=== PATIENT | female | born 1990 | race Caucasian/White ===

== ENCOUNTER → 2016-04-04 | Day surgery (SDC) | payer MEDICARE, MEDICAID ==
[~2016-04-04] VITALS: Ht 162.6 cm; Wt 84.8 kg
[~2016-04-04] MED LIST: ACET500C PO; ACETAMINOPH W/CODEINE #3 TAB UD PO PRN; BUPIVACAINE HCL 0.5% 10 ML VIAL XX ONE; BUPIVACAINE/EPIN 0.5% 30 ML VIAL As Ordered ONE; IBUP80TA PO; LIDOCAINE W/EPINEPHRINE 1% 20ML VIAL As Ordered ONE; LIDOCAINE W/EPINEPHRINE 1% 20ML VIAL XX ONE; LR 1,000 ML IV SCH; MEPERIDINE INJ 25 MG/ML VIAL (J2175) IV PRN; METOCLOPRAMIDE INJ 10MG/2ML VIAL (J2765) IV PRN; MIDAZOLAM INJ 2 MG/2 ML VIAL (J2250) As Ordered ONE; MORPHINE 10 MG/ML 1ML VIAL IV PRN; ONDANSETRON 4MG/2ML VIAL (J2405) As Ordered ONE; ONDANSETRON 4MG/2ML VIAL (J2405) IV PRN; PERCOCET 5MG/325MG TAB PO PRN; PRENATAL VITAMIN PO; PROPOFOL 200 MG/20 ML VIAL As Ordered ONE; SUCCINYLCHOLINE 100 MG/5 ML SYRINGE (J0330) As Ordered ONE; dexameTHASONE 4 MG/ML 1ML VIAL (J1100) As Ordered ONE; fentaNYL 100 MCG/2 ML INJECTION (J3010) As Ordered ONE; fentaNYL 100 MCG/2 ML INJECTION (J3010) IV PRN
[2016-04-04 14:15] VITALS: BP 135/79
--- NOTE | 2016-04-05 06:56 | RO ---
DATE OF PROCEDURE: 04/04/2016 PREPROCEDURE DIAGNOSIS: Chronic tonsillitis. POSTPROCEDURE DIAGNOSIS: Chronic tonsillitis. PROCEDURE: Tonsillectomy. SURGEON: Dr. Jose Espana. 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 Lau-Km mouth gag was inserted, the tonsil area was infiltrated with lidocaine and epinephrine and Marcaine. Using a Coblator with setting of 6 and 4, the tonsil was dissected free from its bed on both sides. The base and apex and other areas were cauterized with a setting of 4 on the Coblator. No blood loss. A nasogastric was passed to suction air from the esophagus. The patient was extubated and transferred to the recovery room in excellent condition.
== END | disposition home or self-care (01) ==
LOC: M SDC 09:06
PROVIDERS: ATTEND Otolaryngology
DX: J35.01 Chronic tonsillitis (principal)
CPT/HCPCS: 42826; 88302; J0330; J1100; J2250; J2405; J3010

== ENCOUNTER 2016-04-16 21:58 | Emergency (ER) | payer MEDICARE, MEDICAID ==
[~2016-04-16 21:58] MED LIST changes: -ACETAMINOPH W/CODEINE #3 TAB UD PO PRN; -BUPIVACAINE HCL 0.5% 10 ML VIAL XX ONE; -BUPIVACAINE/EPIN 0.5% 30 ML VIAL As Ordered ONE; -LIDOCAINE W/EPINEPHRINE 1% 20ML VIAL As Ordered ONE; -LIDOCAINE W/EPINEPHRINE 1% 20ML VIAL XX ONE; -LR 1,000 ML IV SCH; -MEPERIDINE INJ 25 MG/ML VIAL (J2175) IV PRN; -METOCLOPRAMIDE INJ 10MG/2ML VIAL (J2765) IV PRN; -MIDAZOLAM INJ 2 MG/2 ML VIAL (J2250) As Ordered ONE; -MORPHINE 10 MG/ML 1ML VIAL IV PRN; -ONDANSETRON 4MG/2ML VIAL (J2405) As Ordered ONE; -ONDANSETRON 4MG/2ML VIAL (J2405) IV PRN; -PERCOCET 5MG/325MG TAB PO PRN; -PROPOFOL 200 MG/20 ML VIAL As Ordered ONE; -SUCCINYLCHOLINE 100 MG/5 ML SYRINGE (J0330) As Ordered ONE; -dexameTHASONE 4 MG/ML 1ML VIAL (J1100) As Ordered ONE; -fentaNYL 100 MCG/2 ML INJECTION (J3010) As Ordered ONE; -fentaNYL 100 MCG/2 ML INJECTION (J3010) IV PRN
[2016-04-16] MEDS ORDERED: IBUPROFEN 100 MG/5 ML SUSP UDC As Ordered ONE (23:17)
--- NOTE | 2016-04-16 23:25 | EDDOCDS ---
Nurse's Notes [facility] Name: Dilma Enciso Age: 25 yrs Sex: Female : 1990 Arrival Date: 04/16/2016 Time: 21:58 Bed 15 Private MD: Joyce Liao C Diagnosis: Otalgia and effusion of ear Presentation: 04/16 22:03 Presenting complaint: Patient states: she has had a earache for 3-4 days pt had cz tonsillectomy 04/04/16. Adult Sepsis Screening: The patient does not have new or worsening altered mentation. Patient's respiratory rate is less than 22. Systolic blood pressure is greater than 100. Patient has a qSOFA score of 0- Negative Sepsis Screen. Suicide/Homicide risk assessment- the patient denies having any suicidal and/or homicidal ideations and does not present with any other emotional, behavioral or mental health complaints. Status: Patient is not a technical services representative or dependent. Transition of care: patient was not received from another setting of care. 22:03 Acuity: IRVING Level 5 cz 22:03 Method Of Arrival: Walkin/Carried/Asstd cz Triage Assessment: 22:06 General: Appears in no apparent distress. Pain: Location: right ear and left ear Pain cz currently is 9 out of 10 on a pain scale. HIV screening NA for this visit Offered previously. 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 zyrtec nasal spray daily 2. Hydrocodone-Acetaminophen Oral - PMHx: Anxiety; - PSHx: Tonsillectomy; Adenoidectomy; - Social history: Smoking status: Patient states was never smoker of tobacco. No barriers to communication noted, The patient speaks fluent Turkmen, Speaks appropriately for age. - Family history: Not pertinent. - : The pt / caregiver states he / she is not on anticoagulants. Home medication list is obtained from the patient. - Exposure Risk Screening:: None identified. Screenin:08 Screening information is obtained from the patient. Fall risk: No risks identified. tm5 Assistance ADL's: requires no assistance with activities of daily living. Abuse/DV Screen: The patient / caregiver reports he/she is: not in a situation that causes fear, pain or injury. Nutritional screening: No deficits noted. Advance Directives: There is no active DNR order. home support is adequate. Assessment: 23:08 General: Appears in no apparent distress, Behavior is appropriate for age, cooperative. tm5 Pain: Location: right ear and left ear Pain currently is 9 out of 10 on a pain scale. Quality of pain is described as sharp, throbbing. Neurological: Level of Consciousness is awake, alert, Oriented to person, place, time. EENT: Ear canal clear on right ear and left ear. Vital Signs: 22:00 BP 116 / 69; Pulse 82; Resp 18 S; Temp 94.9(T); Pulse Ox 98% on R/A; Weight 84.37 kg gr2 (R); Height 5 ft. 4 in. (162.56 cm) (R); Pain 6/10; 23:23 BP 118 / 79; Pulse 74; Resp 18; Temp 97.2(O); Pulse Ox 98% on R/A; Pain 7/10; tm5 22:00 Body Mass Index 31.93 (84.37 kg, 162.56 cm) gr2 Vitals: 22:00 Log In Time: April 16, 2016 at 22:00. gr2 ED Course: 21:59 Patient visited by Dwaine Morel. gr2 21:59 Patient moved to Waiting gr2 22:00 Joyce Liao is Private Physician. gr2 22:02 Patient visited by Dwaine Morel. gr2 22:02 Patient moved to Pre RCE gr2 22:04 Triage Initiated cz 22:56 Patient moved to 15 sls1 23:07 Patient visited by Bren Raphael RN. tm5 23:08 Mark[facility] Wu FNP [facility]. ke 23:08 Patient visited by Marky Wu FNP. ke 23:08 Patient visited by Marky Wu FNP. ke 23:08 Awaiting ED physician evaluation. tm5 23:08 The patient / caregiver is instructed regarding the plan of care and ED course. tm5 23:08 No procedures done that require assistance. tm5 23:16 Joyce Liao is Referral Physician. ke 23:23 Patient visited by Bren Raphael RN. tm5 23:23 No IV's were initiated during this patient's visit. tm5 Administered Medications: 23:23 Drug: Ibuprofen (10mg/kg) 600 mg [ibuprofen 100 mg/5 mL oral suspension (30 mL)] Route: tm5 PO; 23:23 Follow up: Response: Pt left department before re-evaluation is appropriate tm5 Order Results: There are currently no results for this order. Outcome: 23:16 Discharge ordered by Provider. ke 23:23 Discharge Assessment: Patient awake, alert and oriented x 3. No cognitive and/or tm5 functional deficits noted. Patient verbalized understanding of disposition instructions. patient administered narcotics - no. The following High Risk Discharge criteria are identified: None. Discharged to home ambulatory, with significant other. Condition: good Condition: stable. Discharge instructions given to patient, Instructed on discharge instructions, follow up and referral plans. medication usage, Demonstrated understanding of instructions, medications, Pt was receptive of discharge instructions/ teaching. Prescriptions given X 1. No special radiology studies were completed. Property :Personal belongings accompany Pt. 23:24 Patient left the ED. tm5 Signatures: Dago Orta, RN RN Marky Hampton FNP FNP ke Strong, Shannon RN RN [facility] Dwaine Morel gr2 Bren Raphael RN RN tm5 IVETT
--- NOTE | 2016-04-16 23:25 | EDDOCDS ---
Physician Documentation [facility] Name: Dilma Enciso Age: 25 yrs Sex: Female : 1990 Arrival Date: 04/16/2016 Time: 21:58 Bed 15 Private MD: Joyce Liao C Disposition: 04/16/16 23:16 Discharged to Home/Self Care. Impression: Otalgia and effusion of ear. - Condition is Stable. - Discharge Instructions: Earache. - Prescriptions for MOTRIN SYRUP - take 30 milliliter by ORAL route every 6 hours; 320 milliliter. - Medication Reconciliation, Local Pharmacy Hours form. - Follow up: Joyce Liao; When: As needed; Reason: Continuance of care. - Problem is an ongoing problem. - Symptoms are unchanged. Historical: - Allergies: No known drug Allergies; - Home Meds: 1. zyrtec nasal spray daily 2. Hydrocodone-Acetaminophen Oral - PMHx: Anxiety; - PSHx: Tonsillectomy; Adenoidectomy; - Social history: Smoking status: Patient states was never smoker of tobacco. No barriers to communication noted, The patient speaks fluent Belarusian, Speaks appropriately for age. - Family history: Not pertinent. - : The pt / caregiver states he / she is not on anticoagulants. Home medication list is obtained from the patient. - Exposure Risk Screening:: None identified. 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 4 in. (162.56 cm) (R); Pain 6/10; 23:23 BP 118 / 79; Pulse 74; Resp 18; Temp 97.2(O); Pulse Ox 98% on R/A; Pain 7/10; tm5 22:00 Body Mass Index 31.93 (84.37 kg, 162.56 cm) gr2 MDM: 23:14 Ibuprofen (10mg/kg) Suspension 600 mg PO once; not to exceed 800 milligrams ordered. ke 23:19 Financial registration complete. pm4 Administered Medications: 23:23 Drug: Ibuprofen (10mg/kg) 600 mg [ibuprofen 100 mg/5 mL oral suspension (30 mL)] Route: tm5 PO; 23:23 Follow up: Response: Pt left department before re-evaluation is appropriate tm5 Signatures: Dago Orta, RN RN cz Marky Wu, SURGICAL CLINICAL REVIEWER SURGICAL CLINICAL REVIEWER Bren Bustamante RN RN tm5 Zak Rodríguez, Reg Reg pm4 MTDD
--- NOTE | 2016-04-19 00:25 | EDDOCDS ---
Physician Documentation [facility] Name: Dilma Enciso Age: 25 yrs Sex: Female : 1990 Arrival Date: 04/16/2016 Time: 21:58 Bed 15 Private MD: Joyce Liao C Disposition: 04/16/16 23:16 Discharged to Home/Self Care. Impression: Otalgia and effusion of ear. - Condition is Stable. - Discharge Instructions: Earache. - Prescriptions for MOTRIN SYRUP - take 30 milliliter by ORAL route every 6 hours; 320 milliliter. - Medication Reconciliation, Local Pharmacy Hours form. - Follow up: Joyce Liao; When: As needed; Reason: Continuance of care. - Problem is an ongoing problem. - Symptoms are unchanged. Historical: - Allergies: No known drug Allergies; - Home Meds: 1. zyrtec nasal spray daily 2. Hydrocodone-Acetaminophen Oral - PMHx: Anxiety; - PSHx: Tonsillectomy; Adenoidectomy; - Social history: Smoking status: Patient states was never smoker of tobacco. No barriers to communication noted, The patient speaks fluent Montserratian, Speaks appropriately for age. - Family history: Not pertinent. - : The pt / caregiver states he / she is not on anticoagulants. Home medication list is obtained from the patient. - Exposure Risk Screening:: None identified. 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 4 in. (162.56 cm) (R); Pain 6/10; 23:23 BP 118 / 79; Pulse 74; Resp 18; Temp 97.2(O); Pulse Ox 98% on R/A; Pain 7/10; tm5 22:00 Body Mass Index 31.93 (84.37 kg, 162.56 cm) gr2 MDM: 23:14 Ibuprofen (10mg/kg) Suspension 600 mg PO once; not to exceed 800 milligrams ordered. ke 23:19 Financial registration complete. pm4 23:32 [facility] Payment Agreement was scanned into [employer] and attached to record. pm4 04/17 11:36 T-Sheet-- Draft Copy was scanned into [employer]ga and attached to record. gb Administered Medications: 04/16 23:23 Drug: Ibuprofen (10mg/kg) 600 mg [ibuprofen 100 mg/5 mL oral suspension (30 mL)] Route: tm5 PO; 23:23 Follow up: Response: Pt left department before re-evaluation is appropriate tm5 Signatures: Dago Orta, CECY RN cz Carmelita Godwin, Reg Reg gb Marky Wu, TOOL MARKER TOOL MARKER Bren Bustamante RN RN tm5 Zak Rodríguez, Reg Reg pm4 The chart was reviewed and I authenticate all verbal orders and agree with the evaluation and treatment provided.Attachments: 23:32 [facility] Payment Agreement pm4 04/17 11:36 T-Sheet-- Draft Copy gb Chart Complete MTDD
--- NOTE | 2016-04-19 00:25 | EDDOCDS ---
Nurse's Notes [facility] Name: Dilma Enciso Age: 25 yrs Sex: Female : 1990 Arrival Date: 04/16/2016 Time: 21:58 Bed 15 Private MD: Joyce Liao C Diagnosis: Otalgia and effusion of ear Presentation: 04/16 22:03 Presenting complaint: Patient states: she has had a earache for 3-4 days pt had cz tonsillectomy 04/04/16. Adult Sepsis Screening: The patient does not have new or worsening altered mentation. Patient's respiratory rate is less than 22. Systolic blood pressure is greater than 100. Patient has a qSOFA score of 0- Negative Sepsis Screen. Suicide/Homicide risk assessment- the patient denies having any suicidal and/or homicidal ideations and does not present with any other emotional, behavioral or mental health complaints. 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 Transition of care: patient was not received from another setting of care. 22:03 Acuity: IRVING Level 5 cz 22:03 Method Of Arrival: Walkin/Carried/Asstd cz Triage Assessment: 22:06 General: Appears in no apparent distress. Pain: Location: right ear and left ear Pain cz currently is 9 out of 10 on a pain scale. HIV screening NA for this visit Offered previously. 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 zyrtec nasal spray daily 2. Hydrocodone-Acetaminophen Oral - PMHx: Anxiety; - PSHx: Tonsillectomy; Adenoidectomy; - Social history: Smoking status: Patient states was never smoker of tobacco. No barriers to communication noted, The patient speaks fluent Syriac, Speaks appropriately for age. - Family history: Not pertinent. - : The pt / caregiver states he / she is not on anticoagulants. Home medication list is obtained from the patient. - Exposure Risk Screening:: None identified. Screenin:08 Screening information is obtained from the patient. Fall risk: No risks identified. tm5 Assistance ADL's: requires no assistance with activities of daily living. Abuse/DV Screen: The patient / caregiver reports he/she is: not in a situation that causes fear, pain or injury. Nutritional screening: No deficits noted. Advance Directives: There is no active DNR order. home support is adequate. Assessment: 23:08 General: Appears in no apparent distress, Behavior is appropriate for age, cooperative. tm5 Pain: Location: right ear and left ear Pain currently is 9 out of 10 on a pain scale. Quality of pain is described as sharp, throbbing. Neurological: Level of Consciousness is awake, alert, Oriented to person, place, time. EENT: Ear canal clear on right ear and left ear. Vital Signs: 22:00 BP 116 / 69; Pulse 82; Resp 18 S; Temp 94.9(T); Pulse Ox 98% on R/A; Weight 84.37 kg gr2 (R); Height 5 ft. 4 in. (162.56 cm) (R); Pain 6/10; 23:23 BP 118 / 79; Pulse 74; Resp 18; Temp 97.2(O); Pulse Ox 98% on R/A; Pain 7/10; tm5 22:00 Body Mass Index 31.93 (84.37 kg, 162.56 cm) gr2 Vitals: 22:00 Log In Time: April 16, 2016 at 22:00. gr2 ED Course: 21:59 Patient visited by Dwaine Morel. gr2 21:59 Patient moved to Waiting gr2 22:00 Joyce Liao is Private Physician. gr2 22:02 Patient visited by Dwaine Morel. gr2 22:02 Patient moved to Pre RCE gr2 22:04 Triage Initiated cz 22:56 Patient moved to 15 sls1 23:07 Patient visited by Bren Raphael RN. tm5 23:08 Mark[facility] FNP [facility]. ke 23:08 Patient visited by Marky Wu FNP. ke 23:08 Patient visited by Marky Wu FNP. ke 23:08 Awaiting ED physician evaluation. tm5 23:08 The patient / caregiver is instructed regarding the plan of care and ED course. tm5 23:08 No procedures done that require assistance. tm5 23:16 Joyce Liao is Referral Physician. ke 23:23 Patient visited by Bren Raphael RN. tm5 23:23 No IV's were initiated during this patient's visit. tm5 23:32 [facility] Payment Agreement was scanned into [employer] and attached to record. pm4 04/17 11:36 T-Sheet-- Draft Copy was scanned into [employer] and attached to record. gb Administered Medications: 04/16 23:23 Drug: Ibuprofen (10mg/kg) 600 mg [ibuprofen 100 mg/5 mL oral suspension (30 mL)] Route: tm5 PO; 23:23 Follow up: Response: Pt left department before re-evaluation is appropriate tm5 Order Results: There are currently no results for this order. Outcome: 23:16 Discharge ordered by Provider. ke 23:23 Discharge Assessment: Patient awake, alert and oriented x 3. No cognitive and/or tm5 functional deficits noted. Patient verbalized understanding of disposition instructions. patient administered narcotics - no. The following High Risk Discharge criteria are identified: None. Discharged to home ambulatory, with significant other. Condition: good Condition: stable. Discharge instructions given to patient, Instructed on discharge instructions, follow up and referral plans. medication usage, Demonstrated understanding of instructions, medications, Pt was receptive of discharge instructions/ teaching. Prescriptions given X 1. No special radiology studies were completed. Property :Personal belongings accompany Pt. 23:24 Patient left the ED. tm5 Signatures: Dago Orta, RN RN cz Carmelita Godwin, Reg Reg gb Marky Wu, Ese Mccray, RN RN sls1 Dwaine Morel gr2 Bren Raphael RN RN tm5 Zak Rodríguez, Reg Reg pm4 Chart Complete MTDD
--- NOTE | 2016-04-19 00:25 | EDDOCDS ---
Physician Documentation [facility] Name: Dilma Enciso Age: 25 yrs Sex: Female : 1990 Arrival Date: 04/16/2016 Time: 21:58 Bed 15 Private MD: Joyce Liao C Disposition: 04/16/16 23:16 Discharged to Home/Self Care. Impression: Otalgia and effusion of ear. - Condition is Stable. - Discharge Instructions: Earache. - Prescriptions for MOTRIN SYRUP - take 30 milliliter by ORAL route every 6 hours; 320 milliliter. - Medication Reconciliation, Local Pharmacy Hours form. - Follow up: Joyce Liao; When: As needed; Reason: Continuance of care. - Problem is an ongoing problem. - Symptoms are unchanged. Historical: - Allergies: No known drug Allergies; - Home Meds: 1. zyrtec nasal spray daily 2. Hydrocodone-Acetaminophen Oral - PMHx: Anxiety; - PSHx: Tonsillectomy; Adenoidectomy; - Social history: Smoking status: Patient states was never smoker of tobacco. No barriers to communication noted, The patient speaks fluent Paraguayan, Speaks appropriately for age. - Family history: Not pertinent. - : The pt / caregiver states he / she is not on anticoagulants. Home medication list is obtained from the patient. - Exposure Risk Screening:: None identified. 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 4 in. (162.56 cm) (R); Pain 6/10; 23:23 BP 118 / 79; Pulse 74; Resp 18; Temp 97.2(O); Pulse Ox 98% on R/A; Pain 7/10; tm5 22:00 Body Mass Index 31.93 (84.37 kg, 162.56 cm) gr2 MDM: 23:14 Ibuprofen (10mg/kg) Suspension 600 mg PO once; not to exceed 800 milligrams ordered. ke 23:19 Financial registration complete. pm4 23:32 [facility] Payment Agreement was scanned into [employer] and attached to record. pm4 04/17 11:36 T-Sheet-- Draft Copy was scanned into [employer] and attached to record. gb Administered Medications: 04/16 23:23 Drug: Ibuprofen (10mg/kg) 600 mg [ibuprofen 100 mg/5 mL oral suspension (30 mL)] Route: tm5 PO; 23:23 Follow up: Response: Pt left department before re-evaluation is appropriate tm5 Signatures: Dago Orta, CECY RN cz Carmelita Godwin, Reg Reg gb Marky Wu, YOUTH WORKER YOUTH WORKER Bren Bustamante RN RN tm5 Zak Rodríguez, Reg Reg pm4 The chart was reviewed and I authenticate all verbal orders and agree with the evaluation and treatment provided.Attachments: 23:32 [facility] Payment Agreement pm4 04/17 11:36 T-Sheet-- Draft Copy gb Chart Complete MTDD
== END 2016-04-16 23:24 | disposition home or self-care (01) ==
LOC: M ED 21:58
DX: H92.03 Otalgia, bilateral (principal); F41.9 Anxiety disorder, unspecified

== ENCOUNTER 2016-04-28 22:20 | Emergency (ER) | payer MEDICARE, MEDICAID ==
[2016-04-28] MEDS ORDERED: IBUPROFEN 600 MG TAB As Ordered ONE (23:38)
--- NOTE | 2016-04-28 23:43 | EDDOCDS ---
Physician Documentation [facility] Name: Dilma Enciso Age: 25 yrs Sex: Female : 1990 Arrival Date: 04/28/2016 Time: 22:20 Bed Triage 2 Private MD: Meredith Harrington FNP Disposition: 04/28/16 23:31 Discharged to Home/Self Care. Impression: Pain in left wrist - CHRONIC. - Condition is Stable. - Discharge Instructions: Wrist Pain. - Prescriptions for Ibuprofen 600 mg Oral Tablet - take 1 tablet by ORAL route every 6 hours As needed take with food; 30 tablet. - Medication Reconciliation, Local Pharmacy Hours form. - Follow up: [facility]; When: 2 - 3 days; Reason: Recheck today's complaints, Continuance of care. - Problem is new. - Symptoms have improved. - Notes: PLEASE USE SPLINT AND MOTRIN, FOLLOW UP WITH [facility] FOR FURTHER EVALUATION OF YOUR CHRONIC LEFT WRIST PAIN Historical: - Allergies: no known allergies; - Home Meds: 1. none - PMHx: Anxiety; - PSHx: Tonsillectomy; Adenoidectomy; - Social history: Smoking status: Patient states was never smoker of tobacco. No barriers to communication noted, The patient speaks fluent Welsh. - Family history: Not pertinent. - : The pt / caregiver states he / she is not on anticoagulants. Home medication list is obtained from the patient. - Exposure Risk Screening:: None identified. 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 4 in. (162.56 cm) (R); Pain 9/10; 22:22 Body Mass Index 31.93 (84.37 kg, 162.56 cm) dhruv MDM: 23:30 Splint Affected Extremity ordered. ck7 23:30 Ibuprofen 600 mg PO once ordered. ck7 Administered Medications: 23:41 Drug: Ibuprofen 600 mg [ibuprofen 600 mg tablet (1 tabs)] Route: PO; b Signatures: Perla Hernandez RN RN rs3 Roland Alston, RPA-C [id number] Rashawn Charles,RN RN jmb MTDD
--- NOTE | 2016-04-28 23:43 | EDDOCDS ---
Nurse's Notes [facility] Name: Dilma Enciso Age: 25 yrs Sex: Female : 1990 Arrival Date: 04/28/2016 Time: 22:20 Bed Triage 2 Private MD: Meredith Harrington FNP Diagnosis: Pain in left wrist-CHRONIC Presentation: 04/28 22:23 Presenting complaint: Patient states: Left wrist pain on and off for a week. No recent rs3 injury. Adult Sepsis Screening: The patient does not have new or worsening altered mentation. Patient's respiratory rate is less than 22. Systolic blood pressure is greater than 100. Patient has a qSOFA score of 0- Negative Sepsis Screen. Suicide/Homicide risk assessment- the patient denies having any suicidal and/or homicidal ideations and does not present with any other emotional, behavioral or mental health complaints. 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 Transition of care: patient was not received from another setting of care. 22:23 Acuity: IRVING Level 4 rs3 22:23 Method Of Arrival: Walkin/Carried/Asstd rs3 Triage Assessment: 22:25 General: Appears in no apparent distress. Pain: Location: left hand. HIV screening NA rs3 for this visit Offered previously. Musculoskeletal: Reports Pain is 5 out of 10 on a pain scale. 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 none - PMHx: Anxiety; - PSHx: Tonsillectomy; Adenoidectomy; - Social history: Smoking status: Patient states was never smoker of tobacco. No barriers to communication noted, The patient speaks fluent Belarusian. - Family history: Not pertinent. - : The pt / caregiver states he / she is not on anticoagulants. Home medication list is obtained from the patient. - Exposure Risk Screening:: None identified. Screenin:41 Screening information is obtained from the patient. Fall risk: No risks identified. jmb Assistance ADL's: requires no assistance with activities of daily living. Abuse/DV Screen: The patient / caregiver reports he/she is: not in a situation that causes fear, pain or injury. Nutritional screening: No deficits noted. Advance Directives: Currently, there is no health care proxy. There is no active DNR order. There is no living will. 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 home support is adequate. Assessment: 23:41 General: Patient instructed on discharge instructions. Patient asked if there were any jmb questions regarding discharge, patient stated no. Patient signed discharge instructions. Patient discharged in stable condition. . Musculoskeletal: Range of motion intact in all extremities. Vital Signs: 22:22 BP 113 / 68; Pulse 89; Resp 18; Temp 97.3(O); Pulse Ox 99% on R/A; Weight 84.37 kg (R); dhruv Height 5 ft. 4 in. (162.56 cm) (R); Pain 9/10; 22:22 Body Mass Index 31.93 (84.37 kg, 162.56 cm) dhruv Vitals: 22:22 Log In Time: April 28, 2016 at 22:22. dhruv ED Course: 22:22 Patient visited by Danita Bethea PCA. dhruv 22:22 Meredith Harrington is Private Physician. dhruv 22:22 Patient moved to Waiting dhruv 22:22 Patient moved to Pre RCE dhruv 22:24 Triage Initiated rs3 23:03 Patient moved to Triage 2 ms18 23:11 [facility]ston [facility] ck7 23:11 Shayne Ni DO is Attending Physician. ck7 23:11 Patient visited by Roland Alston RPA-C. ck7 23:30 [facility] is Referral Physician. ck7 23:41 The patient / caregiver is instructed regarding the plan of care and ED course. jmb 23:41 No IV's were initiated during this patient's visit. No procedures done that require jmb assistance. Administered Medications: 23:41 Drug: Ibuprofen 600 mg [ibuprofen 600 mg tablet (1 tabs)] Route: PO; jmb Order Results: There are currently no results for this order. Outcome: 23:31 Discharge ordered by Provider. ck7 23:41 Discharge Assessment: Patient awake, alert and oriented x 3. No cognitive and/or jmb functional deficits noted. Patient verbalized understanding of disposition instructions. Patient awake and alert. obeys commands, Oriented to person, place and time. Patient verbalized understanding of disposition instructions. Patient has no functional deficits. patient administered narcotics - no. The following High Risk Discharge criteria are identified: None. Discharged to home ambulatory, with significant other. Condition: stable Condition: improved. Discharge instructions given to patient, Instructed on discharge instructions, follow up and referral plans. Demonstrated understanding of instructions, Pt was receptive of discharge instructions/ teaching. No special radiology studies were completed. Property sent home with patient. 23:42 Patient left the ED. lisa Signatures: Perla Hernandez,RN RN rs3 Danita Bethea, SHANTA PRODUCTION OPERATOR Roland White, RPA-C RPA-Cck7 Rashawn Charles,RN RN Justa AponteRN RN ms18 MTDD
--- NOTE | 2016-05-01 00:43 | EDDOCDS ---
Physician Documentation [facility] Name: Dilma Enciso Age: 25 yrs Sex: Female : 1990 Arrival Date: 04/28/2016 Time: 22:20 Bed Triage 2 Private MD: Meredith Harrington FNP Disposition: 04/28/16 23:31 Discharged to Home/Self Care. Impression: Pain in left wrist - CHRONIC. - Condition is Stable. - Discharge Instructions: Wrist Pain. - Prescriptions for Ibuprofen 600 mg Oral Tablet - take 1 tablet by ORAL route every 6 hours As needed take with food; 30 tablet. - Medication Reconciliation, Local Pharmacy Hours form. - Follow up: [facility]; When: 2 - 3 days; Reason: Recheck today's complaints, Continuance of care. - Problem is new. - Symptoms have improved. - Notes: PLEASE USE SPLINT AND MOTRIN, FOLLOW UP WITH [facility] FOR FURTHER EVALUATION OF YOUR CHRONIC LEFT WRIST PAIN Historical: - Allergies: no known allergies; - Home Meds: 1. none - PMHx: Anxiety; - PSHx: Tonsillectomy; Adenoidectomy; - Social history: Smoking status: Patient states was never smoker of tobacco. No barriers to communication noted, The patient speaks fluent Arabic. - Family history: Not pertinent. - : The pt / caregiver states he / she is not on anticoagulants. Home medication list is obtained from the patient. - Exposure Risk Screening:: None identified. 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 4 in. (162.56 cm) (R); Pain 9/10; 22:22 Body Mass Index 31.93 (84.37 kg, 162.56 cm) dhruv Procedures: 04/29 00:55 Fracture care/splinting: Splint applied to left wrist using wrist splint, applied by ck7 nurse. Examined by me, post splint application: neurovascular intact, 2+ distal pulses palpable, brisk capillary refill noted, Patient tolerated well. MDM: 04/28 23:30 Splint Affected Extremity ordered. ck7 23:30 Ibuprofen 600 mg PO once ordered. ck7 23:55 Financial registration complete. hs2 04/29 00:22 [facility] Payment Agreement was scanned into [employer] and attached to record. hs2 12:17 T-Sheet-- Draft Copy was scanned into [employer] and attached to record. gb Administered Medications: 04/28 23:41 Drug: Ibuprofen 600 mg [ibuprofen 600 mg tablet (1 tabs)] Route: PO; lisa Signatures: Carmelita Godwin, Reg Reg gb Perla Hernandez,RN RN rs3 Roland Alston, ARTHUR-C RPA-Cck7 Rashawn CharlesRN RN jmb Marielena Gold, Reg Reg hs2 The chart was reviewed and I authenticate all verbal orders and agree with the evaluation and treatment provided.Attachments: 04/29 00:22 [facility] Payment Agreement hs2 12:17 T-Sheet-- Draft Copy gb Chart Complete MTDD
--- NOTE | 2016-05-01 00:43 | EDDOCDS ---
Physician Documentation [facility] Name: Dilma Enciso Age: 25 yrs Sex: Female : 1990 Arrival Date: 04/28/2016 Time: 22:20 Bed Triage 2 Private MD: Meredith Harrington FNP Disposition: 04/28/16 23:31 Discharged to Home/Self Care. Impression: Pain in left wrist - CHRONIC. - Condition is Stable. - Discharge Instructions: Wrist Pain. - Prescriptions for Ibuprofen 600 mg Oral Tablet - take 1 tablet by ORAL route every 6 hours As needed take with food; 30 tablet. - Medication Reconciliation, Local Pharmacy Hours form. - Follow up: [facility]; When: 2 - 3 days; Reason: Recheck today's complaints, Continuance of care. - Problem is new. - Symptoms have improved. - Notes: PLEASE USE SPLINT AND MOTRIN, FOLLOW UP WITH [facility] FOR FURTHER EVALUATION OF YOUR CHRONIC LEFT WRIST PAIN Historical: - Allergies: no known allergies; - Home Meds: 1. none - PMHx: Anxiety; - PSHx: Tonsillectomy; Adenoidectomy; - Social history: Smoking status: Patient states was never smoker of tobacco. No barriers to communication noted, The patient speaks fluent Chinese. - Family history: Not pertinent. - : The pt / caregiver states he / she is not on anticoagulants. Home medication list is obtained from the patient. - Exposure Risk Screening:: None identified. 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 4 in. (162.56 cm) (R); Pain 9/10; 22:22 Body Mass Index 31.93 (84.37 kg, 162.56 cm) dhruv Procedures: 04/29 00:55 Fracture care/splinting: Splint applied to left wrist using wrist splint, applied by ck7 nurse. Examined by me, post splint application: neurovascular intact, 2+ distal pulses palpable, brisk capillary refill noted, Patient tolerated well. MDM: 04/28 23:30 Splint Affected Extremity ordered. ck7 23:30 Ibuprofen 600 mg PO once ordered. ck7 23:55 Financial registration complete. hs2 04/29 00:22 [facility] Payment Agreement was scanned into [employer] and attached to record. hs2 12:17 T-Sheet-- Draft Copy was scanned into [employer] and attached to record. gb Administered Medications: 04/28 23:41 Drug: Ibuprofen 600 mg [ibuprofen 600 mg tablet (1 tabs)] Route: PO; lisa Signatures: Carmelita Godwin, Reg Reg gb Perla Hernandez,RN RN rs3 Roladn Alston, ARTHUR-C RPA-Cck7 Rashawn CharlesRN RN jmb Marielena Gold, Reg Reg hs2 The chart was reviewed and I authenticate all verbal orders and agree with the evaluation and treatment provided.Attachments: 04/29 00:22 [facility] Payment Agreement hs2 12:17 T-Sheet-- Draft Copy gb Chart Complete MTDD
--- NOTE | 2016-05-01 00:43 | EDDOCDS ---
Nurse's Notes [facility] Name: Dilma Enciso Age: 25 yrs Sex: Female : 1990 Arrival Date: 04/28/2016 Time: 22:20 Bed Triage 2 Private MD: Meredith Harrington FNP Diagnosis: Pain in left wrist-CHRONIC Presentation: 04/28 22:23 Presenting complaint: Patient states: Left wrist pain on and off for a week. No recent rs3 injury. Adult Sepsis Screening: The patient does not have new or worsening altered mentation. Patient's respiratory rate is less than 22. Systolic blood pressure is greater than 100. Patient has a qSOFA score of 0- Negative Sepsis Screen. Suicide/Homicide risk assessment- the patient denies having any suicidal and/or homicidal ideations and does not present with any other emotional, behavioral or mental health complaints. 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 Transition of care: patient was not received from another setting of care. 22:23 Acuity: IRVING Level 4 rs3 22:23 Method Of Arrival: Walkin/Carried/Asstd rs3 Triage Assessment: 22:25 General: Appears in no apparent distress. Pain: Location: left hand. HIV screening NA rs3 for this visit Offered previously. Musculoskeletal: Reports Pain is 5 out of 10 on a pain scale. 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 none - PMHx: Anxiety; - PSHx: Tonsillectomy; Adenoidectomy; - Social history: Smoking status: Patient states was never smoker of tobacco. No barriers to communication noted, The patient speaks fluent Azerbaijani. - Family history: Not pertinent. - : The pt / caregiver states he / she is not on anticoagulants. Home medication list is obtained from the patient. - Exposure Risk Screening:: None identified. Screenin:41 Screening information is obtained from the patient. Fall risk: No risks identified. jmb Assistance ADL's: requires no assistance with activities of daily living. Abuse/DV Screen: The patient / caregiver reports he/she is: not in a situation that causes fear, pain or injury. Nutritional screening: No deficits noted. Advance Directives: Currently, there is no health care proxy. There is no active DNR order. There is no living will. There is no Power of Pharmacy Resource Tech. home support is adequate. Assessment: 23:41 General: Patient instructed on discharge instructions. Patient asked if there were any jmb questions regarding discharge, patient stated no. Patient signed discharge instructions. Patient discharged in stable condition. . Musculoskeletal: Range of motion intact in all extremities. Vital Signs: 22:22 BP 113 / 68; Pulse 89; Resp 18; Temp 97.3(O); Pulse Ox 99% on R/A; Weight 84.37 kg (R); dhruv Height 5 ft. 4 in. (162.56 cm) (R); Pain 9/10; 22:22 Body Mass Index 31.93 (84.37 kg, 162.56 cm) dhruv Vitals: 22:22 Log In Time: April 28, 2016 at 22:22. dhruv ED Course: 22:22 Patient visited by Danita Bethea PCA. dhruv 22:22 Meredith Harrington is Private Physician. dhruv 22:22 Patient moved to Waiting dhruv 22:22 Patient moved to Pre RCE dhruv 22:24 Triage Initiated rs3 23:03 Patient moved to Triage 2 ms18 23:11 Roland [facility]C [facility] ck[facility] 23:11 Shayne Ni DO is Attending Physician. ck7 23:11 Patient visited by Roland Alston RPA-C. ck7 23:30 [facility] is Referral Physician. ck7 23:41 The patient / caregiver is instructed regarding the plan of care and ED course. jmb 23:41 No IV's were initiated during this patient's visit. No procedures done that require jmb assistance. 04/29 00:22 [facility] Payment Agreement was scanned into [employer] and attached to record. hs2 12:17 T-Sheet-- Draft Copy was scanned into [employer] and attached to record. gb Administered Medications: 04/28 23:41 Drug: Ibuprofen 600 mg [ibuprofen 600 mg tablet (1 tabs)] Route: PO; jmb Order Results: There are currently no results for this order. Outcome: 23:31 Discharge ordered by Provider. ck7 23:41 Discharge Assessment: Patient awake, alert and oriented x 3. No cognitive and/or jmb functional deficits noted. Patient verbalized understanding of disposition instructions. Patient awake and alert. obeys commands, Oriented to person, place and time. Patient verbalized understanding of disposition instructions. Patient has no functional deficits. patient administered narcotics - no. The following High Risk Discharge criteria are identified: None. Discharged to home ambulatory, with significant other. Condition: stable Condition: improved. Discharge instructions given to patient, Instructed on discharge instructions, follow up and referral plans. Demonstrated understanding of instructions, Pt was receptive of discharge instructions/ teaching. No special radiology studies were completed. Property sent home with patient. 23:42 Patient left the ED. lsia Signatures: Carmelita Godwin, Reg Reg gb Perla Hernandez,RN RN rs3 Danita Bethea, COLLEGE ATHLETE COLLEGE ATHLETE dhruv Roland Alston, RPA-C RPA-Cck7 Rashawn Charles,RN RN Justa Aponte RN RN ms18 Marielena Gold, Reg Reg hs2 Chart Complete MTDYuval
== END 2016-04-28 23:42 | disposition home or self-care (01) ==
LOC: M ED 22:20
DX: M25.532 Pain in left wrist (principal); G89.29 Other chronic pain

== ENCOUNTER → 2016-07-02 | Emergency (ER) | payer MEDICARE, MEDICAID ==
[~2016-07-02] VITALS: Ht 162.6 cm; Wt 74.4 kg
[~2016-07-02] MED LIST changes: +ZOLO100T PO
[2016-07-02 20:17] LABS: INR 0.97
[2016-07-02 20:46] LABS: BASO # 0.1 K/mm3 (0.0-0.2); BASO % 0.9 % (0.0-1.0); EOS # 0.4 K/mm3 (0.0-0.50); EOS % 4.3 % (0.0-3.0); LARGE UNSTAINED CELL # 0.1 K/mm3 (0.0-0.4); LARGE UNSTAINED CELL % 1.6 % (0.0-4.0); LYMPH # 2.9 K/mm3 (1.5-6.5); LYMPH % 32.9 % (24.0-44.0); MEAN CORPUSCULAR HEMOGLOBIN 29.4 pg (27.0-33.0); MEAN CORPUSCULAR HGB CONC 33.7 g/dl (32.0-36.5); MEAN CORPUSCULAR VOLUME 87.2 fl (80.0-96.0); MONO # 0.4 K/mm3 (0.0-0.8); NEUTROPHILS # 4.6 K/mm3 (1.8-7.7); NEUTROPHILS % 55.3 % (36.0-66.0); PLATELET COUNT, AUTOMATED 251 k/mm3 (150-450); RED CELL DISTRIBUTION WIDTH 12.2 % (11.5-14.5); WHITE BLOOD COUNT 8.3 K/mm3 (4.0-10.0)
[2016-07-02 20:47] LABS: ANION GAP 7 MEQ/L (8-16); BLOOD UREA NITROGEN 7 MG/DL (7-18); CALCIUM LEVEL 8.8 MG/DL (8.5-10.1); CARBON DIOXIDE LEVEL 28 MEQ/L (21-32); CHLORIDE LEVEL 106 MEQ/L (98-107); CREATININE FOR GFR 0.74 MG/DL (0.55-1.02); GLOMERULAR FILTRATION RATE > 60.0 (>60); GLUCOSE, FASTING 95 MG/DL (70-105); HCG, SERUM QUANTITATIVE < 1.0 MIU/ML; POTASSIUM SERUM 3.2 MEQ/L (3.5-5.1); SODIUM LEVEL 141 MEQ/L (136-145)
[2016-07-02 21:14] VITALS: BP 121/70
== END | disposition home or self-care (01) ==
LOC: EDUNIT# 19:17 → EDBD 19:24 → EDSEX 19:24 → M ED 20:02
DX: N92.0 Excessive and frequent menstruation with regular cycle (principal); F32.9 Major depressive disorder, single episode, unspecified; F41.9 Anxiety disorder, unspecified; Z79.899 Other long term (current) drug therapy; F17.210 Nicotine dependence, cigarettes, uncomplicated; R51 Headache

== ENCOUNTER 2016-07-23 05:34 | Emergency (ER) | payer MEDICARE, MEDICAID ==
[~2016-07-23] VITALS: Ht 162.6 cm; Wt 79.4 kg
[2016-07-23] MEDS ORDERED: ZYRT10TA2 PO (05:55)
[2016-07-23] MEDS ORDERED: IBUPROFEN 800 MG TAB PO ONE (07:15)
--- NOTE | 2016-07-23 08:00 | REP ---
Cervical spine seven views: There are no comparisons. Vertebral body heights, interspacing alignment are normal. The facets are normally aligned. Prevertebral soft tissues are normal. There is no listhesis on flexion or extension. The odontoid view is unremarkable. There is no bony foraminal encroachment. Impression: Essentially negative plain film study of the cervical spine. Signed by Reji Miller MD 07/23/2016 07:51 A
[2016-07-23 08:26] VITALS: BP 127/76
--- NOTE | 2016-07-23 09:28 | ECGEPIP ---
Stationary ECG Study [facility] - ED Test Date: 2016-07-23 Pat Name: MICHELE NIELSEN Department: Room: - Gender: F Shanker Out: XiongB: 1990 Requested By: JULIA MORRELL PA-C. Order Number: [id number] Reading MD: Jeff Aragon Measurements Intervals [place] Rate: 59 P: 23 CT: 148 QRS: 52 QRSD: 81 T: 29 QT: 393 QTc: 391 Interpretive Statements SINUS BRADYCARDIA POSSIBLE LAE SIMILAR TO 12/06/14 Electronically Signed On 07-23-2016 9:28:19 EDT by Jeff Aragon
== END 2016-07-23 08:31 | disposition home or self-care (01) ==
LOC: EDBD 05:34 → M ED 06:33
DX: G89.29 Other chronic pain (principal); M54.2 Cervicalgia; T22.292A Burn of second degree of multiple sites of left shoulder and upper limb, except wrist and hand, initial encounter; X08.8XXA Exposure to other specified smoke, fire and flames, initial encounter; Y92.9 Unspecified place or not applicable; Y93.9 Activity, unspecified; M54.9 Dorsalgia, unspecified; F41.9 Anxiety disorder, unspecified; F12.10 Cannabis abuse, uncomplicated; F32.9 Major depressive disorder, single episode, unspecified; F17.200 Nicotine dependence, unspecified, uncomplicated; Z79.899 Other long term (current) drug therapy

== ENCOUNTER → 2016-08-27 | Outpatient (CLI) | payer MEDICARE, MEDICAID ==
[~2016-08-27] MED LIST changes: +ZYRT10TA2 PO
[2016-08-27 14:51] LABS: MEAN CORPUSCULAR HEMOGLOBIN 30.3 pg (27.0-33.0); MEAN CORPUSCULAR VOLUME 91.9 fl (80.0-96.0); RED CELL DISTRIBUTION WIDTH 12.1 % (11.5-14.5); WHITE BLOOD COUNT 6.6 K/mm3 (4.0-10.0)
[2016-08-27 15:13] LABS: ALBUMIN 3.7 GM/DL (3.2-5.2); ALBUMIN/GLOBULIN RATIO 1.09 (1.00-1.93); ALKALINE PHOSPHATASE 76 U/L (45-117); ALT/SGPT 19 U/L (12-78); AMYLASE 53 U/L (25-115); ANION GAP 6 MEQ/L (8-16); AST/SGOT 12 U/L (15-37); BILIRUBIN,DIRECT 0.3 MG/DL (0.0-0.2); BILIRUBIN,TOTAL 1.3 MG/DL (0.2-1.0); BLOOD UREA NITROGEN 10 MG/DL (7-18); CARBON DIOXIDE LEVEL 28 MEQ/L (21-32); CHLORIDE LEVEL 109 MEQ/L (98-107); CREATININE FOR GFR 0.75 MG/DL (0.55-1.02); GLOMERULAR FILTRATION RATE > 60.0 (>60); GLUCOSE, FASTING 88 MG/DL (70-105); MAGNESIUM LEVEL 1.8 MG/DL (1.8-2.4); POTASSIUM SERUM 4.1 MEQ/L (3.5-5.1); SODIUM LEVEL 143 MEQ/L (136-145); TOTAL PROTEIN 7.1 GM/DL (6.4-8.2)
== END ==
LOC: M LAB 13:35
PROVIDERS: ATTEND Nurse Practitioner Family
DX: R51 Headache (principal); K62.5 Hemorrhage of anus and rectum; R10.9 Unspecified abdominal pain

== ENCOUNTER → 2016-09-03 | Outpatient (CLI) | payer MEDICARE, MEDICAID ==
--- NOTE | 2016-09-03 08:49 | REP ---
Cervical spine series: Three views. History: Headache. Comparison radiographs are from July 23, 2016. Findings: AP, open-mouth odontoid, and lateral views of the cervical spine show reversal of the normal cervical lordosis. Vertebral body heights and disc spaces are maintained. Alignment is normal otherwise. Prevertebral soft tissues are not widened. Posterior elements appear intact. No bony destructive lesion is seen. Impression: Reversal of the normal cervical lordosis. Otherwise negative. Signed by Amadeo Ochoa MD 09/03/2016 02:49 P
--- NOTE | 2016-09-03 09:10 | REP ---
CT Head without contrast HISTORY: Occipital headache COMPARISON: 12/04/2014 An area of decreased attenuation is present in the left parietal lobe. There is dilatation of the overlying cortical sulci and posterior body and atrium of the left lateral ventricle. This represents encephalomalacia. There is no intraparenchymal hemorrhage, acute infarct, mass or midline shift. Of the third and lateral ventricles are dilated consistent with minimal volume loss. There is no extra cerebral collection. There is no fracture. Mucosal thickening is present in the left ethmoid sinus. IMPRESSION: 1. Left parietal lobe encephalomalacia. 2. Minimal volume loss. Signed by Leonard Isbell MD 09/03/2016 09:01 A
== END ==
LOC: M RAD 07:44
PROVIDERS: ATTEND Nurse Practitioner Family
DX: R51 Headache (principal)

== ENCOUNTER 2016-11-08 23:54 | Emergency (ER) | payer MEDICARE, MEDICAID ==
[~2016-11-08] VITALS: Ht 165.1 cm; Wt 147.0 kg
[2016-11-09 00:02] VITALS: BP 106/63
[2016-11-09] MEDS ORDERED: KLON0.5T PO (00:05)
[2016-11-09] MEDS ORDERED: LAMI1TAB7 PO (00:05)
[2016-12-24] MEDS ORDERED: TOPI25TA10 PO (12:10)
[2016-12-24] MEDS ORDERED: OMEP20CA3 PO (12:10)
[2016-12-24] MEDS ORDERED: CLON-412 PO (12:10)
[2016-12-24] MEDS ORDERED: FLUT1SPR2 (12:10)
[2016-12-24] MEDS ORDERED: LAMO100T PO (13:15)
[2016-12-24] MEDS ORDERED: MELA3TAB PO (13:15)
[2016-12-24] MEDS ORDERED: SERT-138 PO (13:15)
== END 2016-11-09 01:26 | disposition left against medical advice (07) ==
LOC: M ED 23:54
DX: R10.9 Unspecified abdominal pain (principal); Z53.21 Procedure and treatment not carried out due to patient leaving prior to being seen by health care provider

== ENCOUNTER → 2016-11-28 | Outpatient (CLI) | payer MEDICARE, MEDICAID ==
[~2016-11-28] MED LIST changes: +CLON-412 PO; +CONRAY-43 43% 50ML VIAL (Q9960) As Ordered ONE; +FLUT1SPR2; +KLON0.5T PO; +LAMI1TAB7 PO; +LAMO100T PO; +MACR100C43 PO; +MELA3TAB PO; +OMEP20CA3 PO; +SERT-138 PO; +TOPI25TA10 PO; +ZOFR4TAB3 PO
--- NOTE | 2016-11-28 09:20 | REP ---
MR ARTHROGRAPHY LEFT SHOULDER: With pre and post intra-articular gadolinium enhanced saline injected imaging: HISTORY: Pain. Decreased range of motion and numbness since injury 2 months ago. No comparison radiographs. TECHNIQUE: The injection procedure is performed and dictated separately. Pre and post intra-articular gadolinium enhanced saline injected imaging is acquired. Imaging planes include axial, oblique coronal, oblique sagittal and ABER projection images. T1 and T2-weighted scans are included with and without fat saturation. MRI FINDINGS: Pre-injection MR imaging shows cortical and medullary bone signal intensity to be normal at the shoulder. There is subcortical cyst formation in the superolateral humeral head. This finding has been associated with impingement. There is mild tendonitis tendinosis change in the distal supraspinatus tendon. Post-injection imaging shows good filling and enhancement of the left glenohumeral articulation. No loose body is seen. The anterior and posterior labral cartilages appear intact. The infraspinatus, subscapularis, and biceps tendons have an intact appearance. There is no evidence of supraspinatus or other rotator cuff tear on oblique coronal T1-weighted fat sat images post injection. ABER imaging shows no evidence of anterior labral tear. IMPRESSION: Mild supraspinatus tendinosis. Subcortical cyst formation in the superolateral humeral head. Otherwise unremarkable MR arthrography left shoulder . Signed by Amadeo Ochoa MD 11/28/2016 02:34 P
--- NOTE | 2016-11-28 14:41 | REP ---
Procedure: Left shoulder arthrogram The procedure was performed under the direct supervision of Dr. Ochoa. History: Left shoulder pain The benefits and risks including but not limited to pain, infection, bleeding and anaphylaxis were explained to the patient and informed consent was obtained. Technique: The left glenohumeral joint space was localized using fluoroscopic guidance. The skin was prepped and draped in a sterile fashion. 1% lidocaine was used as a local anesthetic. Using fluoroscopic guidance a 22 gauge spinal needle was inserted and advanced into the joint. 0.5 ml of Conray 43 was injected to verify placement. 11 ml of a solution containing 20 ml of sterile saline and 0.15 ml of ProHance was injected into the joint. The needle was removed and the patient was taken to MRI for postprocedural imaging. The the patient tolerated the procedure well and there were no immediate complications. less than 1 second of fluoro time was utilized for this procedure. Reviewed by PARTH Hebert 11/28/2016 08:27 ASigned by Amadeo Ochoa MD 11/28/2016 02:32 P
== END ==
LOC: M RADPRO 06:47
PROVIDERS: ATTEND Orthopaedic Surgery
DX: M65.812 Other synovitis and tenosynovitis, left shoulder (principal); M71.312 Other bursal cyst, left shoulder
CPT/HCPCS: 23350; 73223; 77002; A9576; Q9960

== ENCOUNTER → 2016-12-10 | Outpatient (CLI) | payer MEDICARE ==
[~2016-12-10] MED LIST changes: -CONRAY-43 43% 50ML VIAL (Q9960) As Ordered ONE
== END ==
LOC: M LAB 11:59
PROVIDERS: ATTEND Registered Nurse Psychiatric/Mental Health
DX: F43.22 Adjustment disorder with anxiety (principal)

== ENCOUNTER 2016-12-14 13:50 | Emergency (ER) | payer MEDICAID, MEDICARE ==
[~2016-12-14] VITALS: Ht 162.6 cm; Wt 66.8 kg
[~2016-12-14 13:50] MED LIST changes: -CLON-412 PO; -FLUT1SPR2; -LAMO100T PO; -MACR100C43 PO; -MELA3TAB PO; -OMEP20CA3 PO; -SERT-138 PO; -TOPI25TA10 PO; -ZOFR4TAB3 PO
[2016-12-14] MEDS ORDERED: ONDANSETRON 4MG/2ML VIAL (J2405) IV ONE (15:00)
[2016-12-14] MEDS ORDERED: NS 1,000 ML IV ONE (15:00)
[2016-12-14 15:21] LABS: BASO % 0.6 % (0.0-1.0); EOS # 0.2 K/mm3 (0.0-0.50); LARGE UNSTAINED CELL # 0.1 K/mm3 (0.0-0.4); LARGE UNSTAINED CELL % 1.7 % (0.0-4.0); LYMPH # 1.5 K/mm3 (1.5-6.5); LYMPH % 24.3 % (24.0-44.0); MEAN CORPUSCULAR HEMOGLOBIN 31.6 pg (27.0-33.0); MEAN CORPUSCULAR HGB CONC 35.4 g/dl (32.0-36.5); MEAN CORPUSCULAR VOLUME 89.4 fl (80.0-96.0); MONO # 0.4 K/mm3 (0.0-0.8); MONO % 6.9 % (0.0-5.0); NEUTROPHILS # 3.9 K/mm3 (1.8-7.7); NEUTROPHILS % 63.5 % (36.0-66.0); PLATELET COUNT, AUTOMATED 202 k/mm3 (150-450); RED CELL DISTRIBUTION WIDTH 12.6 % (11.5-14.5); WHITE BLOOD COUNT 6.2 K/mm3 (4.0-10.0)
[2016-12-14 15:30] LABS: CONTROL LINE HCG INT CTR LINE PRESENT
[2016-12-14 15:39] LABS: ALBUMIN 3.8 GM/DL (3.2-5.2); ALBUMIN/GLOBULIN RATIO 1.19 (1.00-1.93); ALKALINE PHOSPHATASE 85 U/L (45-117); ALT/SGPT 22 U/L (12-78); AMYLASE 45 U/L (25-115); ANION GAP 8 MEQ/L (8-16); AST/SGOT 21 U/L (15-37); BILIRUBIN,DIRECT 0.3 MG/DL (0.0-0.2); BILIRUBIN,TOTAL 1.5 MG/DL (0.2-1.0); BLOOD UREA NITROGEN 10 MG/DL (7-18); CALCIUM LEVEL 8.3 MG/DL (8.5-10.1); CARBON DIOXIDE LEVEL 27 MEQ/L (21-32); CHLORIDE LEVEL 108 MEQ/L (98-107); CREATININE FOR GFR 0.69 MG/DL (0.55-1.02); GLOMERULAR FILTRATION RATE > 60.0 (>60); GLUCOSE, FASTING 84 MG/DL (70-105); POTASSIUM SERUM 3.9 MEQ/L (3.5-5.1); SODIUM LEVEL 143 MEQ/L (136-145)
--- NOTE | 2016-12-14 16:01 | REP ---
Clinical: Abdominal pain. Technique: Upright view of the chest with supine and upright views of the abdomen and pelvis. Findings: Frontal upright view of the chest demonstrates no acute cardiopulmonary process or free air below the diaphragm to suspect pneumoperitoneum. Supine and upright views of the abdomen and pelvis demonstrate nonspecific bowel gas pattern without obstruction or perforation. No organomegaly. No abnormal calcifications. Skeletal structures normal for age. Prior cholecystectomy and tubal ligation. Impression: Nonspecific bowel gas pattern. Signed by Nixon Valladares MD 12/14/2016 03:53 P
[2016-12-14] MEDS ORDERED: ZOFR4TAB3 PO (16:43)
[2016-12-14] MEDS ORDERED: MACR100C43 PO (16:43)
[2016-12-14 16:45] VITALS: BP 108/73
[2016-12-24] MEDS ORDERED: OMEP20CA3 PO (12:10)
[2016-12-24] MEDS ORDERED: TOPI25TA10 PO (12:10)
[2016-12-24] MEDS ORDERED: CLON-412 PO (12:10)
[2016-12-24] MEDS ORDERED: FLUT1SPR2 (12:10)
[2016-12-24] MEDS ORDERED: MELA3TAB PO (13:15)
[2016-12-24] MEDS ORDERED: LAMO100T PO (13:15)
[2016-12-24] MEDS ORDERED: SERT-138 PO (13:15)
== END 2016-12-14 17:00 | disposition home or self-care (01) ==
LOC: M ED 13:50
DX: K52.9 Noninfective gastroenteritis and colitis, unspecified (principal); N39.0 Urinary tract infection, site not specified; F17.210 Nicotine dependence, cigarettes, uncomplicated; Z79.899 Other long term (current) drug therapy
CPT/HCPCS: 36415; 74022; 80048; 80076; 80175; 81001; 82150; 83690; 84703; 85025; 87086; 96374; 99283; J2405

== ENCOUNTER 2016-12-15 03:36 | Emergency (ER) | payer MEDICARE ==
[~2016-12-15] VITALS: Ht 165.1 cm; Wt 67.7 kg
[~2016-12-15 03:36] MED LIST changes: +MACR100C43 PO; +ZOFR4TAB3 PO
[2016-12-15 05:09] LABS: MEAN CORPUSCULAR HEMOGLOBIN 30.7 pg (27.0-33.0); MEAN CORPUSCULAR HGB CONC 34.1 g/dl (32.0-36.5); RED CELL DISTRIBUTION WIDTH 12.9 % (11.5-14.5)
[2016-12-15 05:20] LABS: CONTROL LINE HCG INT CTR LINE PRESENT
[2016-12-15 05:25] LABS: METHADONE URINE NEGATIVE (NEGATIVE)
[2016-12-15 05:37] LABS: ALBUMIN 3.5 GM/DL (3.2-5.2); ALBUMIN/GLOBULIN RATIO 1.13 (1.00-1.93); ALKALINE PHOSPHATASE 80 U/L (45-117); ALT/SGPT 20 U/L (12-78); ANION GAP 9 MEQ/L (8-16); AST/SGOT 15 U/L (15-37); BILIRUBIN,DIRECT 0.2 MG/DL (0.0-0.2); BLOOD UREA NITROGEN 17 MG/DL (7-18); CALCIUM LEVEL 8.8 MG/DL (8.5-10.1); CARBON DIOXIDE LEVEL 26 MEQ/L (21-32); CHLORIDE LEVEL 111 MEQ/L (98-107); CREATININE FOR GFR 0.77 MG/DL (0.55-1.02); GLOMERULAR FILTRATION RATE > 60.0 (>60); GLUCOSE, FASTING 90 MG/DL (70-105); POTASSIUM SERUM 3.9 MEQ/L (3.5-5.1); SODIUM LEVEL 146 MEQ/L (136-145); TOTAL PROTEIN 6.6 GM/DL (6.4-8.2)
[2016-12-15 08:29] VITALS: BP 111/65
[2016-12-24] MEDS ORDERED: OMEP20CA3 PO (12:10)
[2016-12-24] MEDS ORDERED: CLON-412 PO (12:10)
[2016-12-24] MEDS ORDERED: TOPI25TA10 PO (12:10)
[2016-12-24] MEDS ORDERED: FLUT1SPR2 (12:10)
[2016-12-24] MEDS ORDERED: MELA3TAB PO (13:15)
[2016-12-24] MEDS ORDERED: LAMO100T PO (13:15)
[2016-12-24] MEDS ORDERED: SERT-138 PO (13:15)
== END 2016-12-15 08:34 | disposition home or self-care (01) ==
LOC: M ED 03:36
DX: F43.0 Acute stress reaction (principal); Z79.899 Other long term (current) drug therapy
CPT/HCPCS: 80048; 80076; 80307; 84443; 84703; 85027; 99284; G0480

== ENCOUNTER 2016-12-22 23:50 | Emergency (ER) | payer MEDICARE ==
[~2016-12-22] VITALS: Ht 165.1 cm; Wt 67.7 kg
[2016-12-23] MEDS ORDERED: IBUPROFEN 800 MG TAB PO ONE (02:30)
[2016-12-23 04:11] VITALS: BP 115/64
--- NOTE | 2016-12-23 09:22 | REP ---
Nasal bones three views: There is no nasal bone fracture. Orbital rims are unremarkable. No air-fluid levels are identified in the paranasal sinuses. Impression: Negative nasal bone series. If there is continuing clinical concern consider follow-up maxillofacial CT. Signed by Reji Miller MD 12/23/2016 09:14 A
[2016-12-24] MEDS ORDERED: CLON-412 PO (12:10)
[2016-12-24] MEDS ORDERED: TOPI25TA10 PO (12:10)
[2016-12-24] MEDS ORDERED: FLUT1SPR2 (12:10)
[2016-12-24] MEDS ORDERED: OMEP20CA3 PO (12:10)
[2016-12-24] MEDS ORDERED: LAMO100T PO (13:15)
[2016-12-24] MEDS ORDERED: MELA3TAB PO (13:15)
[2016-12-24] MEDS ORDERED: SERT-138 PO (13:15)
== END 2016-12-23 04:12 | disposition home or self-care (01) ==
LOC: EDBD 23:50 → M ED 23:50
DX: M54.2 Cervicalgia (principal); T76.11XA Adult physical abuse, suspected, initial encounter; Y04.8XXA Assault by other bodily force, initial encounter; Y92.099 Unspecified place in other non-institutional residence as the place of occurrence of the external cause; Y93.89 Activity, other specified; Y99.9 Unspecified external cause status; Z79.899 Other long term (current) drug therapy

== ENCOUNTER 2017-01-06 07:13 | Day surgery (SDC) | payer MEDICARE, MEDICAID ==
[~2017-01-06] VITALS: Ht 162.6 cm; Wt 67.6 kg
[~2017-01-06 07:13] MED LIST changes: +CLON-412 PO; +EPINEPHrine INJ 1 MG/ML 1ML AMP As Ordered ONE; +FLUT1SPR2; +LAMO100T PO; +MELA3TAB PO; +OMEP20CA3 PO; +SERT-138 PO; +TOPI25TA10 PO
[2017-01-06] MEDS ORDERED: ROPIvacaine 0.5% 30 ML INJECTION (J2795) ONE (07:14)
[2017-01-06] MEDS ORDERED: LIDOCAINE 1% MDV 20ML VIAL ONE (07:14)
[2017-01-06] MEDS ORDERED: EPINEPHrine INJ 1 MG/ML 1ML AMP ONE (07:14)
[2017-01-06] MEDS ORDERED: ceFAZolin 2 GM/D5W 50 ML IV BAG (J0690) As Ordered ONE (07:22)
[2017-01-06] MEDS ORDERED: MIDAZOLAM INJ 2 MG/2 ML VIAL (J2250) As Ordered ONE ×2 (07:41→07:56)
[2017-01-06] MEDS ORDERED: fentaNYL 100 MCG/2 ML INJECTION (J3010) As Ordered ONE (07:41)
[2017-01-06] MEDS: MIDAZOLAM INJ 2 MG/2 ML VIAL (J2250) IV PRN ×2 (07:51→07:56)
[2017-01-06 07:53] LABS: CONTROL LINE HCG INT CTR LINE PRESENT
[2017-01-06] MEDS ORDERED: PROPOFOL 200 MG/20 ML VIAL As Ordered ONE ×2 (07:56→10:38)
[2017-01-06] MEDS ORDERED: ROCURONIUM BROMIDE 50 MG/5 ML VIAL/SYRINGE As Ordered ONE (07:56)
[2017-01-06] MEDS ORDERED: fentaNYL 250 MCG/5 ML INJECTION (J3010) As Ordered ONE (07:56)
[2017-01-06] MEDS ORDERED: LIDOCAINE 2% INJ 100 MG/5 ML SDV (FOR ANES.) As Ordered ONE (07:56)
[2017-01-06] MEDS ORDERED: LIDOCAINE 1% MDV INJ 50 ML VIAL As Ordered ONE (08:09)
[2017-01-06] MEDS ORDERED: fentaNYL 100 MCG/2 ML INJECTION (J3010) IV PRN (08:30)
[2017-01-06] MEDS ORDERED: PHENYLephrine HCL 500 MCG/5 ML (100MCG/ML) SYRINGE (J2370) As Ordered ONE (08:52)
[2017-01-06] MEDS ORDERED: NEOSTIGMINE 10 MG/10 ML VIAL (J2710) As Ordered ONE (09:16)
[2017-01-06] MEDS ORDERED: GLYCOPYRROLATE INJ 0.2 MG/ML 2 ML VIAL As Ordered ONE (09:16)
[2017-01-06] MEDS ORDERED: ONDANSETRON 4MG/2ML VIAL (J2405) As Ordered ONE (09:16)
[2017-01-06] MEDS ORDERED: ePHEDrine SULFATE 25 MG/5 ML(5MG/ML) SYRINGE As Ordered ONE (09:31)
[2017-01-06] MEDS ORDERED: PERCOCET 5MG/325MG TAB As Ordered ONE (11:13)
[2017-01-06] MEDS ORDERED: MEPERIDINE INJ 25 MG/ML VIAL (J2175) IV PRN (11:15)
[2017-01-06] MEDS ORDERED: METOCLOPRAMIDE INJ 10MG/2ML VIAL (J2765) IV PRN (11:15)
[2017-01-06] MEDS ORDERED: ONDANSETRON 4MG/2ML VIAL (J2405) IV PRN (11:15)
[2017-01-06] MEDS ORDERED: PERCOCET 5MG/325MG TAB PO PRN (11:15)
[2017-01-06] MEDS ORDERED: LR 1,000 ML IV SCH (11:15)
[2017-01-06] MEDS: fentaNYL 100 MCG/2 ML INJECTION (J3010) IV PRN ×3 (11:20→11:32)
[2017-01-06 13:15] VITALS: BP 105/60
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
== END 2017-01-06 15:23 | disposition home or self-care (01) ==
LOC: M SDC 07:13
PROVIDERS: ATTEND Orthopaedic Surgery
DX: M24.812 Other specific joint derangements of left shoulder, not elsewhere classified (principal); F31.9 Bipolar disorder, unspecified; F17.210 Nicotine dependence, cigarettes, uncomplicated; Z79.899 Other long term (current) drug therapy
CPT/HCPCS: 29807; 36415; 84703; C1713; J0690; J2250; J2370; J2405; J2710; J2795; J3010

== ENCOUNTER → 2017-03-18 | Outpatient (CLI) | payer MEDICARE, MEDICAID ==
[~2017-03-18] MED LIST changes: -EPINEPHrine INJ 1 MG/ML 1ML AMP As Ordered ONE
[2017-03-18 11:23] LABS: BASO # 0.1 10^3/uL (0.0-0.2); BASO % 1.2 % (0.0-1.0); EOS # 0.2 10^3/uL (0.0-0.50); EOS % 2.8 % (0.0-3.0); IMMATURE GRANULOCYTE % 0.3 % (0-0); LYMPH # 1.7 10^3/uL (1.5-6.5); LYMPH % 27.5 % (24.0-44.0); MEAN CORPUSCULAR HEMOGLOBIN 29.5 pg (27.0-33.0); MEAN CORPUSCULAR HGB CONC 32.2 g/dl (32.0-36.5); MEAN CORPUSCULAR VOLUME 91.7 fl (80.0-96.0); MONO # 0.4 10^3/uL (0.0-0.8); MONO % 6.2 % (0.0-5.0); NEUTROPHILS # 3.7 10^3/uL (1.8-7.7); PLATELET COUNT, AUTOMATED 249 10^3/uL (150-450); RED CELL DISTRIBUTION WIDTH 12.1 % (11.5-14.5)
[2017-03-18 11:51] LABS: ALBUMIN 4.1 GM/DL (3.2-5.2); ALBUMIN/GLOBULIN RATIO 1.11 (1.00-1.93); ALKALINE PHOSPHATASE 92 U/L (45-117); ALT/SGPT 22 U/L (12-78); ANION GAP 7 MEQ/L (8-16); AST/SGOT 15 U/L (7-37); BILIRUBIN,TOTAL 1.1 MG/DL (0.2-1.0); BLOOD UREA NITROGEN 11 MG/DL (7-18); CALCIUM LEVEL 9.2 MG/DL (8.5-10.1); CARBON DIOXIDE LEVEL 29 MEQ/L (21-32); CHLORIDE LEVEL 105 MEQ/L (98-107); GLOMERULAR FILTRATION RATE > 60.0 (>60); GLUCOSE, FASTING 94 MG/DL (70-105); POTASSIUM SERUM 4.2 MEQ/L (3.5-5.1); SODIUM LEVEL 141 MEQ/L (136-145); TOTAL PROTEIN 7.8 GM/DL (6.4-8.2)
== END ==
LOC: M LAB 10:43
PROVIDERS: ATTEND Nurse Practitioner Adult Health
DX: R10.9 Unspecified abdominal pain (principal)

== ENCOUNTER 2018-04-10 17:50 | Emergency (ER) | payer MEDICAID, MEDICARE ==
[~2018-04-10 17:50] MED LIST changes: +ZOFR4TAB14 PO; -ZOFR4TAB3 PO; +ZYRT10CA5 PO; -ZYRT10TA2 PO
[2018-04-10] MEDS ORDERED: ALBUTEROL SULFATE 2.5 MG/0.5 ML INH NEB SOLN NEB ONE (18:30)
[2018-04-10] MEDS ORDERED: VENTAER INH (19:26)
[2018-04-10 19:28] VITALS: BP 125/79
== END 2018-04-10 19:50 | disposition home or self-care (01) ==
LOC: M ED 17:50 → EDBD 17:50 → M ED 19:50
DX: R06.09 Other forms of dyspnea (principal); F33.9 Major depressive disorder, recurrent, unspecified; F41.9 Anxiety disorder, unspecified; Z79.899 Other long term (current) drug therapy

== ENCOUNTER 2018-04-12 00:41 | Emergency (ER) | payer MEDICARE ==
[~2018-04-12 00:41] MED LIST changes: +VENTAER INH
[2018-04-12 00:45] VITALS: BP 127/79
== END 2018-04-12 02:25 | disposition home or self-care (01) ==
LOC: M ED 00:41
DX: T33.821A Superficial frostbite of right foot, initial encounter (principal); T33.822A Superficial frostbite of left foot, initial encounter; X31.XXXA Exposure to excessive natural cold, initial encounter; Y92.89 Other specified places as the place of occurrence of the external cause; G40.909 Epilepsy, unspecified, not intractable, without status epilepticus; Z79.899 Other long term (current) drug therapy

== ENCOUNTER 2018-04-28 03:33 | Emergency (ER) | payer MEDICARE, OTHER ==
[~2018-04-28] VITALS: Ht 165.1 cm; Wt 50.0 kg
[2018-04-28 03:34] VITALS: BP 133/79
== END 2018-04-28 05:06 | disposition home or self-care (01) ==
LOC: M ED 03:33
DX: Z60.8 Other problems related to social environment (principal); J45.909 Unspecified asthma, uncomplicated; K21.9 Gastro-esophageal reflux disease without esophagitis; F31.9 Bipolar disorder, unspecified; F17.210 Nicotine dependence, cigarettes, uncomplicated

== ENCOUNTER 2019-01-26 21:53 | Emergency (ER) | payer MEDICARE, MEDICAID ==
[~2019-01-26] VITALS: Ht 165.1 cm; Wt 70.9 kg
[~2019-01-26 21:53] MED LIST changes: -MELA3TAB PO; +MELA3TAB63 PO; -OMEP20CA3 PO; +OMEP20CA4 PO
[2019-01-26 23:29] LABS: BASO # 0.1 10^3/uL (0.0-0.2); BASO % 0.7 % (0.0-1.0); EOS # 0.2 10^3/uL (0.0-0.5); EOS % 2.2 % (0.0-3.0); HEMATOCRIT 43.1 % (36.0-47.0); HEMOGLOBIN 14.5 g/dl (12.0-15.5); LYMPH # 2.3 10^3/uL (1.5-5.0); LYMPH % 30.8 % (24.0-44.0); MEAN CORPUSCULAR HEMOGLOBIN 29.9 pg (27.0-33.0); MEAN CORPUSCULAR HGB CONC 33.6 g/dl (32.0-36.5); MEAN CORPUSCULAR VOLUME 88.9 fl (80.0-96.0); MONO # 0.7 10^3/uL (0.0-0.8); MONO % 9.4 % (0.0-5.0); NEUTROPHILS # 4.2 10^3/uL (1.5-8.5); NEUTROPHILS % 56.6 % (36.0-66.0); PLATELET COUNT, AUTOMATED 244 10^3/uL (150-450); RED BLOOD COUNT 4.85 10^6/uL (4.00-5.40); WHITE BLOOD COUNT 7.4 10^3/uL (4.0-10.0)
[2019-01-27 00:13] LABS: ALBUMIN 4.2 GM/DL (3.2-5.2); ALT/SGPT 42 U/L (12-78); BILIRUBIN,DIRECT 0.4 MG/DL (0.0-0.2); BILIRUBIN,TOTAL 1.6 MG/DL (0.2-1.0); BLOOD UREA NITROGEN 14 MG/DL (7-18); CALCIUM LEVEL 9.3 MG/DL (8.5-10.1); CARBON DIOXIDE LEVEL 29 MEQ/L (21-32); CHLORIDE LEVEL 104 MEQ/L (98-107); GLOMERULAR FILTRATION RATE > 60.0 (>60); GLUCOSE, FASTING 88 MG/DL (70-100); HCG, SERUM QUANTITATIVE < 1.0 MIU/ML; LIPASE 91 U/L (73-393); POTASSIUM SERUM 3.8 MEQ/L (3.5-5.1); SODIUM LEVEL 140 MEQ/L (136-145); TOTAL PROTEIN 7.7 GM/DL (6.4-8.2)
--- NOTE | 2019-01-27 01:04 | REPVR ---
PROCEDURE INFORMATION: Exam: US Pelvis Complete, Transabdominal and US Pelvis, Transvaginal and US Duplex Artery and Vein, Ovaries, Complete Exam date and time: 01/27/2019 12:42 AM Clinical history: 28 years old, female; Pelvic pain TECHNIQUE: Imaging protocol: Real-time transabdominal and transvaginal pelvic ultrasound (complete) with image documentation. Transvaginal imaging was used for better evaluation of the endometrium and adnexa. Real-time duplex ultrasound scan of the arterial and venous flow of the ovaries with B-mode, color Doppler flow and spectral waveform analysis. COMPARISON: US PELVIC NON-OB COMPLETE 01/10/2014 2:36 PM FINDINGS: Uterus/cervix: The anteverted uterus measures 8.6 cm x 4.5 cm x 5 cm. No myometrial mass is identified. The endometrium is homogeneous in appearance and measures 14 mm in thickness. Right adnexa: The right ovary is normal in appearance. No right ovarian cyst or right adnexal mass is noted. The right ovary measures 3.6 cm x 2.3 cm x 2.8 cm. The right ovarian volume measures 12.1 mL. The arterial and venous color Doppler flow and spectral waveforms within the right ovary are within normal limits, without evidence for right ovarian torsion. Left adnexa: The left ovary is normal in appearance. No left ovarian cyst or left adnexal mass is noted. The left ovary measures 2.9 cm x 2.5 cm x 2.3 cm. The left ovarian volume measures 8.7 mL. The arterial and venous color Doppler flow and spectral waveforms within the left ovary are within normal limits, without evidence for left ovarian torsion. Free fluid: No free fluid is visualized in the pelvis from images obtained. Bladder: The partially distended urinary bladder is unremarkable. IMPRESSION: Normal pelvic ultrasound. No evidence for ovarian torsion. Electronically signed by: Prem Lowery On 01/27/2019 01:03:55 AM
[2019-01-27] MEDS ORDERED: FLAG500T PO (02:44)
[2019-01-27] MEDS ORDERED: metroNIDAZOLE (FLAGYL) 500 MG TAB PO ONE (02:45)
[2019-01-27 02:55] VITALS: BP 103/57
[2019-01-27 03:55] LABS: CHLAMYDIA DNA AMPLIFICATION NEGATIVE (NEGATIVE); GC DNA AMPLIFICATION NEGATIVE (NEGATIVE)
== END 2019-01-27 03:02 | disposition home or self-care (01) ==
LOC: M ED 21:53
DX: N76.0 Acute vaginitis (principal); F31.9 Bipolar disorder, unspecified; F15.10 Other stimulant abuse, uncomplicated; K21.9 Gastro-esophageal reflux disease without esophagitis; Z79.899 Other long term (current) drug therapy; F17.210 Nicotine dependence, cigarettes, uncomplicated

== ENCOUNTER 2019-02-23 23:18 | Emergency (ER) | payer MEDICARE, MEDICAID ==
[~2019-02-23] VITALS: Ht 165.1 cm; Wt 88.0 kg
[~2019-02-23 23:18] MED LIST changes: +FLAG500T PO; -LAMO100T PO; +LAMO100T3 PO
[2019-02-23 23:40] VITALS: BP 154/80
[2019-02-23] MEDS ORDERED: BUPRENORP NALOX (23:48)
== END 2019-02-24 01:27 | disposition home or self-care (01) ==
LOC: M ED 23:18
DX: F41.0 Panic disorder [episodic paroxysmal anxiety] (principal); F43.0 Acute stress reaction; F31.9 Bipolar disorder, unspecified

== ENCOUNTER 2019-03-08 10:30 | Emergency (ER) | payer MEDICARE, MEDICAID ==
[~2019-03-08] VITALS: Ht 165.1 cm; Wt 59.1 kg
[~2019-03-08 10:30] MED LIST changes: +BUPRENORP NALOX; +OMEP-172 PO; -OMEP20CA4 PO
[2019-03-08] MEDS ORDERED: BUPR1FIL6 (10:35)
[2019-03-08] MEDS ORDERED: BUPRENORPHINE/NALOXONE 8-2MG SUBLINGUAL TABLET(SUBOXONE) SL STA (12:21)
[2019-03-08 12:44] VITALS: BP 113/64
== END 2019-03-08 12:46 | disposition home or self-care (01) ==
LOC: M ED 10:30
DX: Z76.0 Encounter for issue of repeat prescription (principal); G40.909 Epilepsy, unspecified, not intractable, without status epilepticus; F31.9 Bipolar disorder, unspecified; Z79.891 Long term (current) use of opiate analgesic; O99.331 Smoking (tobacco) complicating pregnancy, first trimester; F17.210 Nicotine dependence, cigarettes, uncomplicated; Z3A.00 Weeks of gestation of pregnancy not specified

== ENCOUNTER 2019-11-12 01:05 | Inpatient (IN) | payer MEDICARE, MEDICAID ==
[~2019-11-12] VITALS: Ht 162.6 cm; Wt 61.0 kg
[~2019-11-12 01:05] MED LIST changes: +BUPR1FIL6; +ISOVUE-370 76% 100ML VIAL ONE; -OMEP-172 PO; +OMEP1CAP73 PO; +ZOSYN 4.5GM VIAL (J2543) ONE; +cefTRIAXone SOD 2 GM VIAL (J0696 PER 250MG) ONE
[2019-11-12] MEDS ORDERED: VANCOMYCIN 1000MG/20ML VIAL ONE ×3 (02:27→16:23)
[2019-11-12] MEDS ORDERED: PERCOCET 5MG/325MG TAB ONE (05:11)
[2019-11-12] MEDS ORDERED: ENOXAPARIN 40MG/0.4ML SYRINGE (J1650 PER 10MG) ONE (08:38)
[2019-11-12] MEDS ORDERED: BUPRENORPHINE/NALOXONE 8-2MG SUBLINGUAL TABLET(SUBOXONE) ONE ×2 (08:42→21:11)
[2019-11-12] MEDS ORDERED: ZOSYN 4.5GM VIAL (J2543) ONE ×2 (12:14→18:16)
[2019-11-12] MEDS ORDERED: BUPIVACAINE HCL 0.25% 30ML VIAL ONE (16:01)
[2019-11-12] MEDS ORDERED: LIDOCAINE 1% SDV 30ML VIAL ONE (16:01)
[2019-11-12] MEDS ORDERED: SUGAMMADEX SODIUM 500 MG/5 ML VIAL (BRIDION) ONE (16:48)
[2019-11-12] MEDS ORDERED: fentaNYL 250 MCG/5 ML INJECTION (J3010) ONE (16:48)
[2019-11-12] MEDS ORDERED: ONDANSETRON 4MG/2ML VIAL ONE (16:48)
[2019-11-12] MEDS ORDERED: METOCLOPRAMIDE INJ 10MG/2ML VIAL (J2765 PER 1) ONE (16:48)
[2019-11-12] MEDS ORDERED: SEVOFLURANE INHAL SOLN 250 ML BTL ONE (16:48)
[2019-11-12] MEDS ORDERED: ACETAMINOPHEN 1000MG 100ML IV BTL (OFIRMEV) (J0131 PER 10MG) ONE (16:48)
[2019-11-12] MEDS ORDERED: propofoL 200 MG/20 ML VIAL ONE (16:48)
[2019-11-12] MEDS ORDERED: dexameTHASONE 4 MG/ML 1ML VIAL (J1100 PER 1MG) ONE (16:48)
[2019-11-12] MEDS ORDERED: MIDAZOLAM INJ 2MG/2ML VIAL (J2250 PER 1MG) ONE (16:48)
[2019-11-12] MEDS ORDERED: KETOROLAC 60MG 2ML VIAL ONE (16:48)
[2019-11-12] MEDS ORDERED: SUCCINYLCHOLINE 100 MG/5 ML SYRINGE (J0330) ONE (16:48)
[2019-11-12] MEDS ORDERED: ROCURONIUM BROMIDE 50 MG/5 ML VIAL ONE (16:48)
[2019-11-12] MEDS ORDERED: LIDOCAINE 2% 100MG/5ML SDV (FOR ANES.) ONE (16:48)
[2019-11-13] MEDS ORDERED: ZOSYN 3.375GM VIAL (J2543) ONE ×4 (00:19→18:23)
[2019-11-13] MEDS ORDERED: VANCOMYCIN 1000MG/20ML VIAL ONE ×3 (01:28→16:52)
[2019-11-13] MEDS ORDERED: ENOXAPARIN 40MG/0.4ML SYRINGE (J1650 PER 10MG) ONE (09:17)
[2019-11-13] MEDS ORDERED: BUPRENORPHINE/NALOXONE 8-2MG SUBLINGUAL TABLET(SUBOXONE) ONE ×2 (09:30→22:05)
[2019-11-14] MEDS ORDERED: ZOSYN 3.375GM VIAL (J2543) ONE ×3 (00:04→11:41)
[2019-11-14] MEDS ORDERED: VANCOMYCIN 1000MG/20ML VIAL ONE ×3 (01:53→18:03)
[2019-11-14] MEDS ORDERED: PERCOCET 5MG/325MG TAB ONE ×2 (03:53→11:41)
[2019-11-14] MEDS ORDERED: ENOXAPARIN 40MG/0.4ML SYRINGE (J1650 PER 10MG) ONE (09:52)
[2019-11-14] MEDS ORDERED: BUPRENORPHINE/NALOXONE 8-2MG SUBLINGUAL TABLET(SUBOXONE) ONE ×2 (09:52→20:12)
[2019-11-15] MEDS ORDERED: VANCOMYCIN 1000MG/20ML VIAL ONE ×4 (00:13→18:51)
[2019-11-15] MEDS ORDERED: ENOXAPARIN 40MG/0.4ML SYRINGE (J1650 PER 10MG) ONE (08:45)
[2019-11-15] MEDS ORDERED: BUPRENORPHINE/NALOXONE 8-2MG SUBLINGUAL TABLET(SUBOXONE) ONE ×2 (08:45→22:05)
[2019-11-15] MEDS ORDERED: LevoFLOXacin 750 MG TABLET ONE (22:05)
[2019-11-16] MEDS ORDERED: VANCOMYCIN 1000MG/20ML VIAL ONE ×3 (01:07→11:44)
[2019-11-16] MEDS ORDERED: ENOXAPARIN 40MG/0.4ML SYRINGE (J1650 PER 10MG) ONE (07:52)
[2019-11-16] MEDS ORDERED: BUPRENORPHINE/NALOXONE 8-2MG SUBLINGUAL TABLET(SUBOXONE) ONE (07:52)
[2019-11-16] MEDS ORDERED: LevoFLOXacin 750 MG TABLET ONE (07:52)
[2019-11-16] MEDS ORDERED: ACETAMINOPHEN 325 MG TAB ONE (07:52)
[2019-11-16] MEDS ORDERED: BOOSTRIX/ADACEL VACCINE (DIPHTH/PERTUSS/ACELL/TETANUS) 0.5ML SYR ONE (09:00)
[2019-11-16] MEDS ORDERED: SUBO8MIS SL (09:23)
[2019-11-16] MEDS ORDERED: SUBO4MIS SL (09:23)
[2019-11-16] MEDS ORDERED: ONDANSETRON 4MG/2ML VIAL IV PRN ×2 (10:15→17:45)
[2019-11-16] MEDS ORDERED: BISACODYL 5 MG TAB PO PRN (10:15)
[2019-11-16] MEDS ORDERED: ACETAMINOPHEN TAB 650MG DOSE (2X325MG) PO PRN (10:15)
[2019-11-16] MEDS ORDERED: PERCOCET 5MG/325MG TAB PO PRN (10:15)
[2019-11-16 20:00] VITALS: BP 122/64
[2019-11-16] MEDS ORDERED: VANCOMYCIN HCL 1,000 MG, VIAL MATE ADAPTER 1 EACH in D5W 250 ML IV SCH (20:00)
[2019-11-16] MEDS ORDERED: BUPRENORPHINE/NALOXONE 8-2MG SUBLINGUAL TABLET(SUBOXONE) PO SCH (21:00)
[2019-11-16] MEDS ORDERED: BACTRIM 160MG/800MG DS TAB ONE (21:30)
[2019-11-16] MEDS: BACTRIM 160MG/800MG DS TAB PO SCH (21:39)
[2019-11-16 22:00] VITALS: BP 122/64
[2019-11-17] MEDS ORDERED: VANCOMYCIN HCL 1,000 MG, VIAL MATE ADAPTER 1 EACH in D5W 250 ML IV SCH ×3
[2019-11-17 06:00] VITALS: BP 120/64
[2019-11-17] MEDS ORDERED: LevoFLOXacin 750 MG TABLET PO SCH (06:00)
[2019-11-17] MEDS ORDERED: SULF1TAB93 PO (07:23)
[2019-11-17] MEDS ORDERED: ACET1TAB55 PO (07:23)
[2019-11-17] MEDS ORDERED: BUPRENORPHINE/NALOXONE 8-2MG SUBLINGUAL TABLET(SUBOXONE) PO SCH (09:00)
[2019-11-17] MEDS ORDERED: ENOXAPARIN 40MG/0.4ML SYRINGE (J1650 PER 10MG) SC SCH (09:00)
[2019-11-17] MEDS ORDERED: [UNRECOGNIZED DRUG - OTHER] IM ONE (09:00)
[2019-11-17] MEDS ORDERED: HEPATITIS A VACCINE IM ONE (09:00)
[2019-11-17] MEDS: BACTRIM 160MG/800MG DS TAB PO SCH (09:07)
--- NOTE | 2019-11-17 12:34 | DS.PDOC ---
Discharge Summary General Date of Admission Nov 12, 2019 at 04:23 Date of Discharge 11/17/2019 Primary Care Physician: Deacon Specialist/Consultants Involve: Ashok Hackett Jr Specialist/Consultants Involve Dr. Jacquelyn Gonzales Discharge Summary PROCEDURES PERFORMED DURING STAY: Incision and Drainage of L neck abscess. ADMITTING DIAGNOSES: 1. L neck abscess DISCHARGE DIAGNOSES: 1. L neck abscess 2. Polysubstance abuse 3. HBV, HCV infection COMPLICATIONS/CHIEF COMPLAINT: Insect Bite. HISTORY OF PRESENT ILLNESS: 29 yo F with a hx of polysubstance abuse, presenting to [facility] ED with a large tender L neck mass. HOSPITAL COURSE: Surgery service consulted for incision and drainage of L neck abscess. Culture + MRSA. Started on IV vancomycin. Positive Hep B and Hep C serologies. ID service consulted. Wound care service Dr. Gonzales consulted. Discharged home with specialist follow up, dressing supplies, home services. Limited DC summary and hospital course due to difficulties in paper chart review amid technical issues. DISCHARGE MEDICATIONS: Please see below. ALLERGIES: Please see below. PHYSICAL EXAMINATION ON DISCHARGE: VITAL SIGNS: Please see below. VITAL SIGNS: Please see below. GENERAL: NAD, comfortable, walking around toom HEENT: JENY NECK: L neck abscess dressing clean and dry CARDIOVASCULAR: RRR, normal S1, S2. RESPIRATORY: lungs CTAB. ABDOMINAL: soft, non tender EXTREMITIES: no deformity, normal ROM NEUROLOGICAL: AAO x PSYCHOLOGICAL: cooperative LABORATORY DATA: Please see below. IMAGING: please see supplemental paper chart PROGNOSIS: good ACTIVITY: [As tolerated]. DIET: regular DISCHARGE PLAN: DC to self care, with specialist and PCP follow up DISCHARGE INSTRUCTIONS: 1. Complete course of bactrim DS 2 tab twice daily by mouth for 7 days 2. follow up with PCP 3. Follow up with ID clinic Dr. Valladares 4. Follow up with Dr. Hackett in General Surgery clinic 5. Follow up with Dr. Gonzales in Wound Clinic. DISCHARGE CONDITION: [Stable]. TIME SPENT ON DISCHARGE: Greater than [30] minutes. Vital Signs/I&Os Vital Signs Date Time Temp Pulse Resp B/P (MAP) Pulse Ox O2 Delivery O2 Flow Rate FiO2 11/17/19 06:00 97.6 60 20 120/64 (82) 99 11/16/19 22:00 Room Air I&O- Last 24 Hours up to 6 AM 11/17/19 06:00 Intake Total 900 ml Output Total 1450 ml Balance -550 ml Discharge Medications Scheduled Buprenorphine HCl/Naloxone HCl (Suboxone 8 mg-2 mg Sl Film) 1 Each Film, 1 STRIP SL QHS, (Reported) Buprenorphine HCl/Naloxone HCl (Suboxone 4 mg-1 mg Sl Film) 1 Each Film, 1 STRIP SL DAILY, (Reported) Sulfamethoxazole/Trimethoprim (Sulfamethoxazole-Tmp Ds Tablet) 1 Each Tablet, 2 TAB PO BID Scheduled PRN Acetaminophen (Acetaminophen) 325 Mg Tablet, 650 MG PO Q6HP PRN for PAIN/FEVER Miscellaneous Medications Buprenorphine HCl/Naloxone HCl (Buprenorp-Nalox 4-1 mg Sl Film) 1 Each Film, (Reported) Allergies Coded Allergies: No Known Allergies (Verified , 12/24/16) ROBERT PAREKH MD Nov 17, 2019 12:34
--- NOTE | 2019-11-17 12:34 | IPNPDOC ---
Date Seen The patient was seen on 11/17/19. Progress Note SUBJECTIVE: Doing well, no acute changes overnight. Denies fevers, chills, n/v/d. OBJECTIVE PHYSICAL EXAMINATION: VITAL SIGNS: Please see below. GENERAL: NAD, comfortable, walking around toom HEENT: JENY NECK: L neck abscess dressing clean and dry CARDIOVASCULAR: RRR, normal S1, S2. RESPIRATORY: lungs CTAB. ABDOMINAL: soft, non tender EXTREMITIES: no deformity, normal ROM NEUROLOGICAL: AAO x PSYCHOLOGICAL: cooperative LABORATORY DATA, IMAGING STUDIES, MICROBIOLOGY: Please see below. DVT prophylaxis ordered?: Y ASSESSMENT AND PLAN: 29 yo F with a hx of polysubstance abuse, presenting for a large L neck abscess. PROBLEMS: 1. L neck abscess: draining. ID consulted. DC IV abx. Bactrim DS on discharge. Dressing supplies, follow up with Gen S[facility], Wound Care and ID service on DC. 2. HBV, HCV: to follow up with ID service as outpatient. 3. Polysubstance abuse: SW on consult, resources provided DISPOSITION: DC to self care. DSS involved. VS, I&O, 24H, Fishbone Vital Signs/I&O Vital Signs Date Time Temp Pulse Resp B/P (MAP) Pulse Ox O2 Delivery O2 Flow Rate FiO2 11/17/19 06:00 97.6 60 20 120/64 (82) 99 11/16/19 22:00 Room Air I&O- Last 24 Hours up to 6 AM 11/17/19 06:00 Intake Total 900 ml Output Total 1450 ml Balance -550 ml ROBERT PAREKH MD Nov 17, 2019 12:34
[2019-11-17 14:00] VITALS: BP 122/66
[2019-11-21 16:22] LABS: HEMATOCRIT 35.4 % (36.0-47.0); HEMOGLOBIN 11.3 g/dl (12.0-15.5); MEAN CORPUSCULAR HEMOGLOBIN 28.5 pg (27.0-33.0); MEAN CORPUSCULAR HGB CONC 31.9 g/dl (32.0-36.5); MEAN CORPUSCULAR VOLUME 89.4 fl (80.0-96.0); PLATELET COUNT, AUTOMATED 355 10^3/uL (150-450); RED BLOOD COUNT 3.96 10^6/uL (4.00-5.40); WHITE BLOOD COUNT 6.1 10^3/uL (4.0-10.0)
[2019-11-21 16:31] LABS: ATYPICAL LYMPH 6 % (0-5); BASOPHILS 1 % (0-1); HYPOCHROMASIA 1+; LYMPHOCYTES 49 % (16-44); MONOCYTES 7 % (0-5); NEUTROPHILS 35 % (28-66); PLATELET ESTIMATE NORMAL (NORMAL)
[2019-11-21 23:55] LABS: BASO % 0.2 % (0.0-1.0); HEMATOCRIT 33.7 % (36.0-47.0); HEMOGLOBIN 11.1 g/dl (12.0-15.5); LYMPH # 0.7 10^3/uL (1.5-5.0); LYMPH % 7.3 % (24.0-44.0); MEAN CORPUSCULAR HEMOGLOBIN 28.7 pg (27.0-33.0); MEAN CORPUSCULAR HGB CONC 32.9 g/dl (32.0-36.5); MEAN CORPUSCULAR VOLUME 87.1 fl (80.0-96.0); MONO # 0.7 10^3/uL (0.0-0.8); MONO % 6.6 % (0.0-5.0); NEUTROPHILS # 8.6 10^3/uL (1.5-8.5); PLATELET COUNT, AUTOMATED 313 10^3/uL (150-450); RED BLOOD COUNT 3.87 10^6/uL (4.00-5.40); WHITE BLOOD COUNT 10.1 10^3/uL (4.0-10.0)
--- NOTE | 2019-12-07 12:39 | CR ---
DATE OF CONSULTATION: 11/12/2019 This is a supplement to my consult note done by my resident, Dr. Ramon Allen. Consult with regards to left neck abscess. Details of the consult and history of physical examination will be dictated by Dr. Allen. Essentially, this is a healthy, 29-year-old female who presented with a 1 week history of swelling on her left neck. Otherwise, denies fever or chills or signs of being sick. She has a remote history of IV drug use but tells me she is not using anything right now. She smokes intermittently. She does not have any chronic medical complaints. She denies any extensive travel history, essentially born around this area, for a while was in [place] and then transferred back here. Denies any sick contacts. Denies any ongoing cough, colds, or generalized illness. Denies night sweats, fevers or chills, or extensive weight loss. In examination, she looks comfortable, breathing normally, saturating normally on room air. She has an extensive induration and cellulitis over the left anterolateral neck area extending from the lower anterior neck at about the supraclavicular level extending slightly towards the chest area. This is freely draining purulent material with necrosis of some portion of the skin at the midline. Due to the extent of the induration and swelling, the course of the sternocleidomastoid is not fully appreciated, but going towards the midline she has a midline trachea and the right side does not seem to be appreciated. She seems to be swallowing normally. Lymphadenopathy on that side is hard to assess due to ongoing swelling. On CT scan, the findings are consistent with the physical examination findings, seems to be subcutaneous in nature, has multiloculated abscess effacing the course of the sternocleidomastoid. Vascular, airway structures, and esophagus at the midline is not affected. This does not seem to be extending into the mediastinum or involving the pleura. IMPRESSION AND PLAN: Patient has a large left neck abscess etiology of which is uncertain. She does have a history of IV drug use, though she denies using anything recent or injecting at that area, she thinks it was from a spider bite. I will bring her to the operating room for incision and drainage of the area and will send some for culture, likewise for pathology, to look for granulomas or possibility of scrofuloderma, tuberculosis, infection, though she does not fit the clinical picture for it. MTDD
--- NOTE | 2019-12-07 12:48 | CR ---
DATE OF CONSULTATION: 11/15/2019 REASON FOR CONSULTATION: Asked to consult by hospitalist for evaluation of large necrotic neck abscess status post incision and drainage (I and D). HISTORY OF PRESENT ILLNESS: Dilma is a 29-year-old female with a history of IV drug abuse, mostly heroin, who presented to the emergency room after she was seen by her primary care provider for a neck abscess associated with a fever. She was taken to the operating room. The abscess size was at least 10 cm. Culture was having growth of methicillin-resistant Staphylococcus aureus (MRSA) and a few Sphingomonas and Pseudomonas putida. The patient had been on IV vancomycin and Zosyn which was discontinued. Vancomycin dose was increased to 1 gram every 6 hours. She denied any nausea, vomiting, or diarrhea, no abdominal pain, no previous history of MRSA. She did not know if she had hepatitis C, she actually stated that she had been tested in the past and was negative prior to getting with her current boyfriend, Talha Noe, who has hepatitis C. She states that her last use of IV drugs was about a month ago and she has been on Suboxone through Dr. Rm. She denies every using her neck for access. She always used her antecubital fossa, both arms. LABORATORIES: Done on 11/11/2019: hCG was negative, lactic acid 1, sodium 137, potassium 3.6, chloride 99, bicarbonate 29, BUN 10 creatinine 0.74, calcium 8.9, albumin 3.3, alkaline phosphatase 266, ALT 524, AST 390, bilirubin 2.1, phosphorous 2.4, white count 8.89, hemoglobin 10.9, hematocrit 33.1, platelets clumped. COVID-19 negative on 11/12/2019. Repeat labs on 11/12/2019: Sodium 137, potassium 3.5, chloride 102, bicarbonate 29, BUN 7, creatinine 0.85, white count 10.8. Labs on 11/13/2019: ALT was 598, AST 435, bilirubin down to 1.1, white count 6.24, hemoglobin 10.6, hematocrit 32.5, platelets 308. Hepatitis C was positive. Culture: Heavy Staphylococcus aureus, MRSA, few Sphingomonas paucimobilis, few Pseudomonas putida, and Pantoea. IMAGING STUDIES: Ultrasound gallbladder unremarkable right upper quadrant. Ultrasound status post cholecystectomy, liver size normal, echogenicity. CT neck with contrast shows a large multiloculated abscess at the base of the neck measuring about 5.6 x 6.7 cm in the base of the left neck with mild reactive lymphadenopathy. Echocardiogram has been ordered, done on 11/12/2019, no vegetations are seen, normal left ventricular systolic function 60-65%. SOCIAL HISTORY: Patient states she has a disability, lives with her boyfriend, Talha Noe, she has three kids, two were adopted together, two girls, her son is adopted by her parents and they are in [place]. She has a history of tobacco abuse, IV drug abuse. She also has a learning disability. MEDICATIONS: - Lovenox 40 mg subcutaneous daily - vancomycin 1 gram IV every 6 hours - Zosyn 4.5 grams IV every 6 hours, discontinued today - Suboxone 8/2 mg one strip daily in the morning, half a strip at night - Tylenol as needed ALLERGIES: No known drug allergies. Vital signs: Stable, patient has been afebrile, temperature 97.6, pulse 71, respirations 16, oxygen saturation 98% on room air, blood pressure 112/66. Heart: Normal S1, S2, no murmurs, rubs, or gallops. Lungs: Clear, no wheezes, rales, or rhonchi. Abdomen: Soft, nontender, no hepatosplenomegaly. Back: No costovertebral angle (CVA) or lumbosacral tenderness. Extremities: No clubbing, cyanosis, or edema. Upper extremities: Both antecubital fossae have scarred up veins, nontender to touch, no purulent drainage from any of the antecubital veins. Left neck area has a 6 x 7 cm large necrotic abscess that was I and D. The base of the ulcer has some purulent discharge, there is minimal surrounding erythema. IMPRESSION: 1. 29-year-old female with a history of IV drug abuse admitted with left neck abscess, polymicrobial, with heavy methicillin-resistant Staphylococcus aureus (MRSA) and other gram-negative rods including Pseudomonas, Pantoea, and Sphingomonas. Patient has been on IV vancomycin and Zosyn. Zosyn has been discontinued. I would suggest continuing with by mouth Levaquin 750 mg daily. 2. Acute hepatitis C. Patient has not had a diagnosis of hepatitic C in the past. Her liver function tests (LFTs) are quite elevated, is most likely a recent diagnosis. 3. IV drug abuse. Currently without any signs of withdrawal, on Suboxone, stable. PLAN: Start Levaquin 750 mg by mouth daily. Continue IV vancomycin. Once stable, patient could be switched to clindamycin 300 mg by mouth four times a day for methicillin-resistant Staphylococcus aureus (MRSA). Patient will be seen by Dr. Gonzales for wound care. Suggest giving patient Twinrix for hepatitis A and B vaccination as well as a Tdap. MTDD
[2019-12-27 02:30] LABS: BASO % 0.3 % (0.0-1.0); EOS % 0.2 % (0.0-3.0); HEMATOCRIT 33.1 % (36.0-47.0); HEMOGLOBIN 10.9 g/dl (12.0-15.5); LYMPH # 1.1 10^3/uL (1.5-5.0); MEAN CORPUSCULAR HEMOGLOBIN 28.8 pg (27.0-33.0); MEAN CORPUSCULAR HGB CONC 32.9 g/dl (32.0-36.5); MEAN CORPUSCULAR VOLUME 87.3 fl (80.0-96.0); MONO # 1.1 10^3/uL (0.0-0.8); MONO % 12.4 % (0.0-5.0); NEUTROPHILS # 6.6 10^3/uL (1.5-8.5); NEUTROPHILS % 74.8 % (36.0-66.0); RED BLOOD COUNT 3.79 10^6/uL (4.00-5.40); WHITE BLOOD COUNT 8.9 10^3/uL (4.0-10.0)
[2019-12-27 02:34] LABS: INR 1.08; PROTHROMBIN TIME 14.2 SECONDS (12.5-14.3)
[2019-12-27 13:44] LABS: APPEARANCE, URINE CLEAR (CLEAR); BACTERIA, URINE AUTO 1+ (NEGATIVE); BILIRUBIN, URINE AUTO NEGATIVE (NEGATIVE); BLOOD, URINE BLOOD 1+ (NEGATIVE); COLOR, URINE YELLOW (YELLOW); GLUCOSE, URINE (UA) AUTO NEGATIVE (NEGATIVE); KETONE, URINE AUTO 1+ mg/dL (NEGATIVE); LEUKOCYTE ESTERASE, URINE AUTO NEGATIVE (NEGATIVE); NITRITE, URINE AUTO NEGATIVE (NEGATIVE); PROTEIN, URINE AUTO NEGATIVE (NEGATIVE); RBC, URINE AUTO 2 /HPF (0-3); SQUAMOUS EPITHELIAL CELL UR AU 2 /HPF (0-6); WBC, URINE AUTO 2 /HPF (0-3)
[2019-12-27 13:45] LABS: SPECIFIC GRAVITY URINE AUTO >1.060 (1.002-1.035)
--- NOTE | 2020-01-06 10:13 | RO ---
DATE OF PROCEDURE: 11/12/2019 PREOPERATIVE DIAGNOSIS: Left neck abscess, soft tissue infection. POSTOPERATIVE DIAGNOSIS: Left neck abscess, soft tissue infection. PROCEDURE: Incision and drainage and unroofing of left neck abscess. SURGEON: Schuyler Chiu MD ANESTHESIA: General anesthesia ESTIMATED BLOOD LOSS: Roughly 20 ml COMPLICATIONS: None. REMARKS: Well indurated and large area abscess behind the sternocleidomastoid and in front of the trapezius muscle extending to the level of the clavicle on the left side. 1 inch Iodoform gauze packing placed after the evacuation of abscess. Ms. Enciso is admitted for a left neck abscess, was not aware of what caused it, but reports about a one week history of swelling to the area. She has a prior history of IV drug use on Suboxone. She denies active drug use. She is being brought to the operating room for incision and drainage of said abscess. PROCEDURE: The patient was bought to the operative room, laid supine on the table. Compression was placed on her lower extremities for deep venous thrombosis (DVT) prophylaxis. General endotracheal anesthesia was started. She was placed in semirecumbent position; her chin facing the opposite side. Her left neck and chest are draped in the usual sterile fashion. Surgical time-out performed prior to the start of the surgery. The patient with active drainage in the middle part of the abscess. The abscess is located at the space behind the sternocleidomastoid muscle in front of the trapezius and extending to the level of the clavicle. Does not seem to extend to the midline. Has extensive soft tissue induration, sloughing and thinning of the skin and active purulent drainage at the middle. The trachea remains midline. The right side did not seem to be affected. Upwards in the mastoids does not seem to be affected. The sloughed off thin skin was opened up with a 15 blade scalpel, releasing a large amount of abscess. Cultures were taken, particularly interested for aerobic, anaerobic, fungal and even AFB culture. The abscess pretty much has taken space on the soft tissue in between those two muscles, has eaten up most of the soft tissue to the area leaving a large cavity. There is also tunneling of the abscess in between the soft tissue behind the sternocleidomastoid, also posteriorly in from the trapezius muscle which we evacuated. After breaking down some of those loculations, the cavity was irrigated profusely with saline. Bleeding points were cauterized. I further opened up the small loculations with a hemostat. The soft tissue was dbrided using the scratch pad. After temporarily packing the area again, I then packed the wound with 1 inch Iodoform gauze. Bulky gauze dressing, ABDs then used to cover the wounds. The patient tolerated the procedure well. She was promptly awaken, extubated and brought to the recovery room in stable condition. IVETT
--- NOTE | 2020-01-08 08:05 | IPN ---
DATE: 11/16/2019 Dilma is feeling well. She denies any fevers or chills. No nausea, vomiting, or diarrhea, no abdominal pain. She would like to go home. She has no nausea, vomiting, or diarrhea. Alginate dressing has been placed to neck wound by Dr. Hackett. Dr. Gonzales has called me to discuss the case as there was a wound clinic referral made. He agrees with current dressing changes. On physical exam, large necrotic ulcer on the left neck measuring about 6 x 7 cm with no surrounding cellulitis. There is some purulent discharge in the bed still. Heart: Normal, S1, S2. No murmurs, rubs, or gallops. Lungs: Clear, no wheezes, rales, or rhonchi. Abdomen: Soft, nontender. Extremities: No edema. LABORATORY DATA: 11/16/2019 vancomycin trough was 13.6. White count 10.8, hemoglobin 10.7, hematocrit 33, platelets 268. Hepatitis B surface antigen non-reactive, hepatitis A negative, hepatitis B core IgM negative, anti-hepatitis B surface antibody reactive 320 titer. I do not see an HIV test. IMPRESSION: 1. Methicillin-resistant Staphylococcus aureus (MRSA) neck abscess with co- infection with gram-negative pathogens including Pseudomonas and Pantoea. Patient on IV vancomycin and Levaquin. 2. Hepatitis C. New diagnosis with elevated liver function tests, AST and ALT around 500. Hepatitis B surface antibody positive. Patient was immunized before. PLAN: Discontinue IV vancomycin. Switch to Bactrim double strength two tablets by mouth twice a day. Will discontinue Levaquin tomorrow. Patient can be discharged home tomorrow to followup at the wound clinic. She could be discharged on Bactrim double strength (DS) two tablets by mouth twice a day for 10 days. She is to followup with Dr. Valladares in 2 weeks. Patient will receive hepatitis A vaccination before discharge. IVETT
[2020-01-08 19:32] LABS: BASO # 0.1 10^3/uL (0.0-0.2); BASO % 0.5 % (0.0-1.0); EOS % 0.3 % (0.0-3.0); HEMOGLOBIN 10.7 g/dl (12.0-15.5); LYMPH # 1.5 10^3/uL (1.5-5.0); LYMPH % 13.4 % (24.0-44.0); MEAN CORPUSCULAR HEMOGLOBIN 28.8 pg (27.0-33.0); MEAN CORPUSCULAR HGB CONC 32.4 g/dl (32.0-36.5); MEAN CORPUSCULAR VOLUME 88.9 fl (80.0-96.0); MONO # 1.4 10^3/uL (0.0-0.8); MONO % 12.8 % (0.0-5.0); NEUTROPHILS # 7.8 10^3/uL (1.5-8.5); NEUTROPHILS % 72.5 % (36.0-66.0); PLATELET COUNT, AUTOMATED 268 10^3/uL (150-450); RED BLOOD COUNT 3.71 10^6/uL (4.00-5.40); WHITE BLOOD COUNT 10.8 10^3/uL (4.0-10.0)
[2020-01-25 09:58] LABS: HEMATOCRIT 32.5 % (36.0-47.0); HEMOGLOBIN 10.6 g/dl (12.0-15.5); RED BLOOD COUNT 3.67 10^6/uL (4.00-5.40); WHITE BLOOD COUNT 6.2 10^3/uL (4.0-10.0)
[2020-01-25 09:59] LABS: BASO % 0.8 % (0.0-1.0); EOS % 1.6 % (0.0-3.0); LYMPH # 1.9 10^3/uL (1.5-5.0); LYMPH % 30.9 % (24.0-44.0); MEAN CORPUSCULAR HEMOGLOBIN 28.9 pg (27.0-33.0); MEAN CORPUSCULAR HGB CONC 32.6 g/dl (32.0-36.5); MEAN CORPUSCULAR VOLUME 88.6 fl (80.0-96.0); MONO % 10.6 % (0.0-5.0); NEUTROPHILS # 3.4 10^3/uL (1.5-8.5); NEUTROPHILS % 54.7 % (36.0-66.0); PLATELET COUNT, AUTOMATED 308 10^3/uL (150-450)
[2020-01-25 10:00] LABS: BASO # 0.1 10^3/uL (0.0-0.2); EOS # 0.1 10^3/uL (0.0-0.5); MONO # 0.7 10^3/uL (0.0-0.8)
[2020-01-30 08:51] LABS: ALBUMIN 2.2 GM/DL (3.2-5.2); ALT/SGPT 510 U/L (12-78); BILIRUBIN,TOTAL 0.6 MG/DL (0.2-1.0); BLOOD UREA NITROGEN 5 MG/DL (7-18); CALCIUM LEVEL 8.3 MG/DL (8.5-10.1); CARBON DIOXIDE LEVEL 34 MEQ/L (21-32); CHLORIDE LEVEL 105 MEQ/L (98-107); CREATININE FOR GFR 0.55 MG/DL (0.55-1.30); GLOMERULAR FILTRATION RATE > 60.0 (>60); GLUCOSE, FASTING 93 MG/DL (70-100); POTASSIUM SERUM 3.5 MEQ/L (3.5-5.1); SODIUM LEVEL 141 MEQ/L (136-145); TOTAL PROTEIN 5.7 GM/DL (6.4-8.2)
[2020-02-04 13:04] LABS: ALBUMIN 3.3 GM/DL (3.2-5.2); ALT/SGPT 524 U/L (12-78); BILIRUBIN,TOTAL 2.1 MG/DL (0.2-1.0); BLOOD UREA NITROGEN 10 MG/DL (7-18); CALCIUM LEVEL 8.9 MG/DL (8.5-10.1); CARBON DIOXIDE LEVEL 29 MEQ/L (21-32); CHLORIDE LEVEL 99 MEQ/L (98-107); CREATININE FOR GFR 0.74 MG/DL (0.55-1.30); GLOMERULAR FILTRATION RATE > 60.0 (>60); GLUCOSE, FASTING 83 MG/DL (70-100); POTASSIUM SERUM 3.6 MEQ/L (3.5-5.1); SODIUM LEVEL 137 MEQ/L (136-145); TOTAL PROTEIN 7.7 GM/DL (6.4-8.2)
[2020-02-04 13:05] LABS: HCG, SERUM QUALITATIVE NEGATIVE (NEGATIVE)
[2020-02-05 12:57] LABS: AMPHETAMINES LEVEL URINE NEGATIVE (NEGATIVE); BARBITURATES URINE NEGATIVE (NEGATIVE); BENZODIAZEPINES URINE NEGATIVE (NEGATIVE); CANNABINOIDS URINE NEGATIVE (NEGATIVE); COCAINE METABOLITE URINE NEGATIVE (NEGATIVE); METHADONE URINE NEGATIVE (NEGATIVE); OPIATES URINE NEGATIVE (NEGATIVE); PHENCYCLIDINE URINE NEGATIVE (NEGATIVE)
[2020-02-06 05:27] LABS: BLOOD UREA NITROGEN 7 MG/DL (7-18); CALCIUM LEVEL 8.3 MG/DL (8.5-10.1); CARBON DIOXIDE LEVEL 29 MEQ/L (21-32); CHLORIDE LEVEL 102 MEQ/L (98-107); CREATININE FOR GFR 0.58 MG/DL (0.55-1.30); GLOMERULAR FILTRATION RATE > 60.0 (>60); GLUCOSE, FASTING 81 MG/DL (70-100); POTASSIUM SERUM 3.5 MEQ/L (3.5-5.1); SODIUM LEVEL 137 MEQ/L (136-145)
[2020-02-06 11:12] LABS: ALBUMIN 2.5 GM/DL (3.2-5.2); ALT/SGPT 598 U/L (12-78); BILIRUBIN,TOTAL 1.1 MG/DL (0.2-1.0); BLOOD UREA NITROGEN 8 MG/DL (7-18); CALCIUM LEVEL 8.2 MG/DL (8.5-10.1); CARBON DIOXIDE LEVEL 28 MEQ/L (21-32); CHLORIDE LEVEL 102 MEQ/L (98-107); CREATININE FOR GFR 0.47 MG/DL (0.55-1.30); GLOMERULAR FILTRATION RATE > 60.0 (>60); GLUCOSE, FASTING 109 MG/DL (70-100); POTASSIUM SERUM 3.7 MEQ/L (3.5-5.1); SODIUM LEVEL 136 MEQ/L (136-145); TOTAL PROTEIN 6.4 GM/DL (6.4-8.2)
[2020-02-06 13:01] LABS: ALBUMIN 2.4 GM/DL (3.2-5.2); ALT/SGPT 447 U/L (12-78); BILIRUBIN,TOTAL 0.6 MG/DL (0.2-1.0); BLOOD UREA NITROGEN 4 MG/DL (7-18); CALCIUM LEVEL 8.8 MG/DL (8.5-10.1); CARBON DIOXIDE LEVEL 31 MEQ/L (21-32); CHLORIDE LEVEL 105 MEQ/L (98-107); GLOMERULAR FILTRATION RATE > 60.0 (>60); GLUCOSE, FASTING 84 MG/DL (70-100); HEPATITIS A ANTIBODY IGM NEGATIVE (NEGATIVE); HEPATITIS B CORE ANTIBODY IGM NEGATIVE (NEGATIVE); HEPATITIS B SURFACE ANTIGEN NEGATIVE (NEGATIVE); POTASSIUM SERUM 3.6 MEQ/L (3.5-5.1); SODIUM LEVEL 140 MEQ/L (136-145); TOTAL PROTEIN 6.2 GM/DL (6.4-8.2)
[2020-02-06 13:03] LABS: HEPATITIS C VIRUS ABY INDEX > 11.0 INDEX (<0.8)
== END 2019-11-17 15:05 | disposition home health service (06) | DRG 580 ==
LOC: M ED 01:05 → M MSPAV 04:23 → UNDOADMIN 04:23 → EEVIPCON 04:23
PROVIDERS: ADMIT Internal Medicine; ATTEND Family Medicine
PROC: 0KD20ZZ Extraction of Right Neck Muscle, Open Approach (ICD-10-PCS; principal; 2019-11-12)
DX: L02.11 Cutaneous abscess of neck (principal); B17.10 Acute hepatitis C without hepatic coma; F17.200 Nicotine dependence, unspecified, uncomplicated; B95.62 Methicillin resistant Staphylococcus aureus infection as the cause of diseases classified elsewhere; B96.5 Pseudomonas (aeruginosa) (mallei) (pseudomallei) as the cause of diseases classified elsewhere; Z79.899 Other long term (current) drug therapy

== ENCOUNTER 2020-09-18 02:08 | Emergency (ER) | payer MEDICARE, MEDICAID ==
[~2020-09-18] VITALS: Ht 165.1 cm; Wt 53.5 kg
[~2020-09-18 02:08] MED LIST changes: +ACET1TAB55 PO; +BACTDSTA PO; -ISOVUE-370 76% 100ML VIAL ONE; -MELA3TAB63 PO; +MELA3TAB70 PO; +SUBO4MIS SL; +SUBO8MIS SL; -ZOSYN 4.5GM VIAL (J2543) ONE; -cefTRIAXone SOD 2 GM VIAL (J0696 PER 250MG) ONE
[2020-09-18] MEDS ORDERED: BUPR1FIL3 PO (02:46)
[2020-09-18 03:05] LABS: HEMATOCRIT 36.8 % (36.0-47.0); HEMOGLOBIN 11.9 g/dl (12.0-15.5); MEAN CORPUSCULAR HEMOGLOBIN 29.1 pg (27.0-33.0); MEAN CORPUSCULAR HGB CONC 32.3 g/dl (32.0-36.5); PLATELET COUNT, AUTOMATED 232 10^3/uL (150-450); RED BLOOD COUNT 4.09 10^6/uL (4.00-5.40); WHITE BLOOD COUNT 6.8 10^3/uL (4.0-10.0)
[2020-09-18 03:20] LABS: AMPHETAMINES LEVEL URINE NEGATIVE (NEGATIVE); BARBITURATES URINE NEGATIVE (NEGATIVE); BENZODIAZEPINES URINE NEGATIVE (NEGATIVE); CANNABINOIDS URINE NEGATIVE (NEGATIVE); COCAINE METABOLITE URINE NEGATIVE (NEGATIVE); METHADONE URINE NEGATIVE (NEGATIVE); OPIATES URINE NEGATIVE (NEGATIVE); PHENCYCLIDINE URINE NEGATIVE (NEGATIVE)
[2020-09-18 03:59] LABS: ALBUMIN 3.9 GM/DL (3.2-5.2); ALT/SGPT 137 U/L (12-78); BILIRUBIN,DIRECT 0.3 MG/DL (0.0-0.2); BILIRUBIN,TOTAL 0.9 MG/DL (0.2-1.0); BLOOD UREA NITROGEN 15 MG/DL (7-18); CARBON DIOXIDE LEVEL 29 MEQ/L (21-32); CHLORIDE LEVEL 109 MEQ/L (98-107); CREATININE FOR GFR 0.73 MG/DL (0.55-1.30); ETHYL ALCOHOL (ETHANOL) < 0.003 % (0.000-0.010); GLOMERULAR FILTRATION RATE > 60.0 (>60); GLUCOSE, FASTING 90 MG/DL (70-100); POTASSIUM SERUM 3.6 MEQ/L (3.5-5.1); SALICYLATE LEVEL < 1.7 MG/DL (5.0-30.0); SODIUM LEVEL 143 MEQ/L (136-145); TOTAL PROTEIN 7.2 GM/DL (6.4-8.2)
[2020-09-18 04:00] LABS: ACETAMINOPHEN LEVEL < 2.0 UG/ML (10.0-30.0)
[2020-09-18 05:48] VITALS: BP 116/59
== END 2020-09-18 06:54 | disposition home or self-care (01) ==
LOC: M ED 02:08
DX: F43.0 Acute stress reaction (principal)

== ENCOUNTER → 2021-08-24 | Outpatient (CLI) | payer MEDICARE, MEDICAID ==
[~2021-08-24] MED LIST changes: +BUPR1FIL3 PO; +BUPR1FIL37; -BUPR1FIL6
[2021-08-24 13:40] LABS: HEMOGLOBIN 12.5 g/dl (12.0-15.5); MEAN CORPUSCULAR HEMOGLOBIN 29.3 pg (27.0-33.0); MEAN CORPUSCULAR HGB CONC 32.1 g/dl (32.0-36.5); MEAN CORPUSCULAR VOLUME 91.3 fl (80.0-96.0); PLATELET COUNT, AUTOMATED 290 10^3/uL (150-450); RED BLOOD COUNT 4.27 10^6/uL (4.00-5.40); WHITE BLOOD COUNT 6.8 10^3/uL (4.0-10.0)
[2021-08-24 13:50] LABS: INR 0.89; PROTHROMBIN TIME 12.4 SECONDS (12.7-14.5)
[2021-08-24 14:19] LABS: ALBUMIN 3.8 GM/DL (3.2-5.2); ALT/SGPT 74 U/L (12-78); BILIRUBIN,TOTAL 1.4 MG/DL (0.2-1.0); BLOOD UREA NITROGEN 12 MG/DL (7-18); CALCIUM LEVEL 9.5 MG/DL (8.5-10.1); CARBON DIOXIDE LEVEL 28 MEQ/L (21-32); CHLORIDE LEVEL 107 MEQ/L (98-107); CREATININE FOR GFR 0.77 MG/DL (0.55-1.30); GLOMERULAR FILTRATION RATE > 60.0 (>60); GLUCOSE, FASTING 77 MG/DL (70-100); POTASSIUM SERUM 3.5 MEQ/L (3.5-5.1); SODIUM LEVEL 139 MEQ/L (136-145); TOTAL PROTEIN 8.1 GM/DL (6.4-8.2)
[2021-08-24 14:23] LABS: HEPATITIS B SURFACE ANTIBODY POSITIVE (POSITIVE)
[2021-08-24 15:03] LABS: HIV 1&2 SCREEN CENTAUR NEGATIVE (NEGATIVE)
== END ==
LOC: M LAB 12:36
PROVIDERS: ATTEND Nurse Practitioner Family
DX: B18.2 Chronic viral hepatitis C (principal)

== ENCOUNTER → 2022-02-27 | Outpatient (REF) | payer MEDICARE, MEDICAID ==
[2022-02-27 16:59] LABS: BASO # 0.1 10^3/uL (0.0-0.2); EOS # 0.4 10^3/uL (0.0-0.5); EOS % 5.5 % (0.0-3.0); HEMATOCRIT 37.8 % (36.0-47.0); HEMOGLOBIN 12.1 g/dl (12.0-15.5); LYMPH # 2.6 10^3/uL (1.5-5.0); LYMPH % 35.9 % (24.0-44.0); MEAN CORPUSCULAR HEMOGLOBIN 29.6 pg (27.0-33.0); MEAN CORPUSCULAR VOLUME 92.4 fl (80.0-96.0); MONO # 0.5 10^3/uL (0.0-0.8); MONO % 7.2 % (2.0-8.0); NEUTROPHILS # 3.7 10^3/uL (1.5-8.5); NEUTROPHILS % 50.1 % (36.0-66.0); PLATELET COUNT, AUTOMATED 151 10^3/uL (150-450); RED BLOOD COUNT 4.09 10^6/uL (4.00-5.40); WHITE BLOOD COUNT 7.3 10^3/uL (4.0-10.0)
[2022-02-27 18:30] LABS: HCG, SERUM QUALITATIVE NEGATIVE (NEGATIVE)
[2022-02-27 18:49] LABS: ALBUMIN 3.8 G/DL (3.2-5.2); ALKALINE PHOSPHATASE 63 U/L (46-116); ALT/SGPT 13 U/L (7.0-40); AST/SGOT 16 U/L (<34); BILIRUBIN,TOTAL 0.8 MG/DL (0.3-1.2); BLOOD UREA NITROGEN 14 MG/DL (9-23); CALCIUM LEVEL 9.5 MG/DL (8.5-10.1); CARBON DIOXIDE LEVEL 28 MMOL/L (20-31); CHLORIDE LEVEL 100 MMOL/L (98-107); CREATININE FOR GFR 0.59 MG/DL (0.55-1.30); GLOMERULAR FILTRATION RATE > 60.0 (>60); GLUCOSE, FASTING 82 MG/DL (60-100); SODIUM LEVEL 137 MMOL/L (136-145); THYROID STIMULATING HORMONE 4.819 uIU/ML (0.55-4.78); TOTAL PROTEIN 7.4 G/DL (5.7-8.2)
== END ==
LOC: M LAB REF 16:28
PROVIDERS: ATTEND Family Medicine Addiction Medicine
DX: R55 Syncope and collapse (principal); N92.0 Excessive and frequent menstruation with regular cycle

== ENCOUNTER 2022-05-20 07:08 | Inpatient (IN) | payer MEDICARE, MEDICAID ==
[~2022-05-20] VITALS: Ht 165.1 cm; Wt 68.4 kg
[2022-05-20 08:20] LABS: BASO # 0.1 10^3/uL (0.0-0.2); BASO % 0.4 % (0.0-1.0); EOS # 0.1 10^3/uL (0.0-0.5); EOS % 0.8 % (0.0-3.0); HEMATOCRIT 41.2 % (36.0-47.0); HEMOGLOBIN 12.8 g/dl (12.0-15.5); LYMPH # 1.6 10^3/uL (1.5-5.0); MEAN CORPUSCULAR HEMOGLOBIN 29.2 pg (27.0-33.0); MEAN CORPUSCULAR HGB CONC 31.1 g/dl (32.0-36.5); MEAN CORPUSCULAR VOLUME 94.1 fl (80.0-96.0); MONO # 0.5 10^3/uL (0.0-0.8); MONO % 3.8 % (2.0-8.0); NEUTROPHILS # 11.2 10^3/uL (1.5-8.5); NEUTROPHILS % 82.6 % (36.0-66.0); PLATELET COUNT, AUTOMATED 300 10^3/uL (150-450); RED BLOOD COUNT 4.38 10^6/uL (4.00-5.40); WHITE BLOOD COUNT 13.5 10^3/uL (4.0-10.0)
[2022-05-20 08:43] LABS: AMYLASE 136 U/L (30-118)
[2022-05-20 08:44] LABS: ALBUMIN 3.3 G/DL (3.2-5.2); ALKALINE PHOSPHATASE 90 U/L (46-116); ALT/SGPT 10 U/L (7.0-40); AST/SGOT 12 U/L (<34); BILIRUBIN,DIRECT 0.2 MG/DL (<0.4); BILIRUBIN,TOTAL 0.6 MG/DL (0.3-1.2); BLOOD UREA NITROGEN 14 MG/DL (9-23); CALCIUM LEVEL 9.3 MG/DL (8.5-10.1); CARBON DIOXIDE LEVEL 29 MMOL/L (20-31); CHLORIDE LEVEL 104 MMOL/L (98-107); CREATININE FOR GFR 0.51 MG/DL (0.55-1.30); GLOMERULAR FILTRATION RATE > 60.0 (>60); GLUCOSE, FASTING 93 MG/DL (60-100); POTASSIUM SERUM 4.2 MMOL/L (3.5-5.1); SODIUM LEVEL 141 MMOL/L (136-145); TOTAL PROTEIN 7.5 G/DL (5.7-8.2)
[2022-05-20] MEDS ORDERED: PIPERACILLIN/TAZOBACTAM SOD 4.5 GM in D5W MINI-BAG PLUS 50 ML IV ONE (10:45)
[2022-05-20] MEDS ORDERED: NS 2,100 ML in IV 1 EA IV ONE (10:45)
[2022-05-20] MEDS ORDERED: ACET500T15 PO (12:17)
[2022-05-20] MEDS ORDERED: HOME MED LIST COMPLETE! XX SCH (12:20)
[2022-05-20] MEDS ORDERED: MORPHINE 4 MG/ML 1ML VIAL IV PRN (12:40)
[2022-05-20] MEDS ORDERED: VANCOMYCIN HCL 1 MG in IV FLUID PLACE HOLDER 1 EA IV SCH (12:40)
[2022-05-20] MEDS: ACETAMINOPHEN 500 MG TAB PO SCH ×2 (13:19→18:00)
[2022-05-20] MEDS ORDERED: KETOROLAC 30 MG/ML 1ML VIAL IV PRN (14:40)
[2022-05-20] MEDS ORDERED: VANCOMYCIN HCL 750 MG, VIAL MATE ADAPTER 1 EACH in D5W 250 ML IV ONE ×2 (15:00→23:00)
[2022-05-20 15:21] LABS: RSV AMPLIFICATION NEGATIVE (NEGATIVE)
[2022-05-20 15:24] LABS: INR 0.97; PROTHROMBIN TIME 13.1 SECONDS (12.5-14.5)
[2022-05-20 15:30] VITALS: BP 112/73
[2022-05-20] MEDS: KETOROLAC 30 MG/ML 1ML VIAL IV PRN (16:25)
[2022-05-20] MEDS: VANCOMYCIN HCL 750 MG, VIAL MATE ADAPTER 1 EACH in D5W 250 ML IV SCH ×2 (16:25→21:37)
[2022-05-20] MEDS ORDERED: AMPICILLIN SOD/SULBACTAM SOD 1.5 GM in D5W MINI-BAG PLUS 50 ML IV SCH (18:00)
[2022-05-20] MEDS ORDERED: MORPHINE 2 MG/ML 1ML VIAL IV PRN (18:10)
[2022-05-20] MEDS ORDERED: LR 1,000 ML IV SCH (18:10)
[2022-05-20] MEDS ORDERED: ONDANSETRON 4MG 2ML VIAL IV PRN (18:10)
[2022-05-20] MEDS ORDERED: UNASYN 3GM VIAL As Ordered ONE (18:24)
[2022-05-20] MEDS ORDERED: ceFAZolin 2 GM/D5W 50 ML IV BAG As Ordered ONE (19:07)
[2022-05-20] MEDS ORDERED: LIDOCAINE 2% 100MG/5ML SDV (FOR ANES.) As Ordered ONE (19:17)
[2022-05-20] MEDS ORDERED: propofoL 200 MG/20 ML VIAL As Ordered ONE (19:17)
[2022-05-20] MEDS ORDERED: MIDAZOLAM INJ 2MG/2ML VIAL As Ordered ONE (19:17)
[2022-05-20] MEDS ORDERED: fentaNYL 100 MCG/2 ML INJECTION As Ordered ONE (19:17)
[2022-05-20] MEDS ORDERED: ONDANSETRON 4MG 2ML VIAL As Ordered ONE (19:17)
[2022-05-20] MEDS ORDERED: PHENYLephrine 500MCG 5ML (100MCG/ML) SYRINGE As Ordered ONE (19:18)
[2022-05-20] MEDS ORDERED: KETOROLAC 60MG 2ML VIAL As Ordered ONE (19:18)
[2022-05-20] MEDS: oxyCODONE 5MG TAB PO PRN ×2 (19:49→20:25)
[2022-05-20] MEDS: fentaNYL 100 MCG/2 ML INJECTION IV PRN ×3 (20:03→20:18)
[2022-05-20 20:45] VITALS: BP 107/62
[2022-05-20] MEDS: AMPICILLIN SOD/SULBACTAM SOD 3 GM in D5W MINI-BAG PLUS 100 ML IV SCH (21:02)
[2022-05-20 21:15] VITALS: BP 97/57
[2022-05-20 21:45] VITALS: BP 105/69
[2022-05-20 22:42] VITALS: BP 106/65
[2022-05-20 23:45] VITALS: BP 104/61
[2022-05-21] VITALS (10 sets, daily range): BP systolic 94–110; BP diastolic 51–73; O2SAT 96
[2022-05-21] MEDS: AMPICILLIN SOD/SULBACTAM SOD 3 GM in D5W MINI-BAG PLUS 100 ML IV SCH ×4 (01:28→18:43)
[2022-05-21] MEDS: ACETAMINOPHEN 500 MG TAB PO SCH ×4 (01:28→18:43)
[2022-05-21] MEDS: VANCOMYCIN HCL 750 MG, VIAL MATE ADAPTER 1 EACH in D5W 250 ML IV SCH ×2 (06:14→13:58)
[2022-05-21 06:34] LABS: BASO % 0.3 % (0.0-1.0); EOS % 0.2 % (0.0-3.0); HEMATOCRIT 33.7 % (36.0-47.0); HEMOGLOBIN 10.9 g/dl (12.0-15.5); LYMPH # 1.5 10^3/uL (1.5-5.0); MEAN CORPUSCULAR HEMOGLOBIN 29.9 pg (27.0-33.0); MEAN CORPUSCULAR HGB CONC 32.3 g/dl (32.0-36.5); MEAN CORPUSCULAR VOLUME 92.6 fl (80.0-96.0); MONO # 0.5 10^3/uL (0.0-0.8); MONO % 3.4 % (2.0-8.0); NEUTROPHILS # 11.3 10^3/uL (1.5-8.5); NEUTROPHILS % 84.6 % (36.0-66.0); RED BLOOD COUNT 3.64 10^6/uL (4.00-5.40); WHITE BLOOD COUNT 13.4 10^3/uL (4.0-10.0)
[2022-05-21 06:44] LABS: ALBUMIN 2.7 G/DL (3.2-5.2); ALKALINE PHOSPHATASE 86 U/L (46-116); ALT/SGPT 11 U/L (7.0-40); AST/SGOT 17 U/L (<34); BILIRUBIN,TOTAL 0.7 MG/DL (0.3-1.2); BLOOD UREA NITROGEN 11 MG/DL (9-23); CALCIUM LEVEL 8.4 MG/DL (8.5-10.1); CARBON DIOXIDE LEVEL 22 MMOL/L (20-31); CHLORIDE LEVEL 106 MMOL/L (98-107); CREATININE FOR GFR 0.46 MG/DL (0.55-1.30); GLOMERULAR FILTRATION RATE > 60.0 (>60); GLUCOSE, FASTING 109 MG/DL (60-100); POTASSIUM SERUM 4.3 MMOL/L (3.5-5.1); SODIUM LEVEL 138 MMOL/L (136-145); TOTAL PROTEIN 6.2 G/DL (5.7-8.2)
[2022-05-21] MEDS: KETOROLAC 30 MG/ML 1ML VIAL IV PRN ×2 (07:59→20:36)
[2022-05-21] MEDS: HEPARIN SOD (PORCINE) 5000UNITS/ML 1ML VIAL/SYRINGE SQ SCH ×2 (13:58→22:59)
[2022-05-21] MEDS: VANCOMYCIN HCL 1,000 MG, VIAL MATE ADAPTER 1 EACH in D5W 250 ML IV SCH (20:33)
[2022-05-22] MEDS: ACETAMINOPHEN 500 MG TAB PO SCH ×4 (00:06→18:05)
[2022-05-22] MEDS: AMPICILLIN SOD/SULBACTAM SOD 3 GM in D5W MINI-BAG PLUS 100 ML IV SCH ×3 (00:06→11:21)
[2022-05-22] MEDS: VANCOMYCIN HCL 1,000 MG, VIAL MATE ADAPTER 1 EACH in D5W 250 ML IV SCH ×2 (04:28→12:09)
[2022-05-22 06:00] VITALS: BP 118/68
[2022-05-22 06:23] LABS: BASO % 0.7 % (0.0-1.0); EOS # 0.2 10^3/uL (0.0-0.5); EOS % 2.7 % (0.0-3.0); HEMATOCRIT 32.6 % (36.0-47.0); HEMOGLOBIN 10.1 g/dl (12.0-15.5); LYMPH # 2.7 10^3/uL (1.5-5.0); LYMPH % 44.1 % (24.0-44.0); MEAN CORPUSCULAR HEMOGLOBIN 29.4 pg (27.0-33.0); MONO # 0.4 10^3/uL (0.0-0.8); MONO % 6.3 % (2.0-8.0); NEUTROPHILS # 2.8 10^3/uL (1.5-8.5); NEUTROPHILS % 45.5 % (36.0-66.0); PLATELET COUNT, AUTOMATED 208 10^3/uL (150-450); RED BLOOD COUNT 3.43 10^6/uL (4.00-5.40)
[2022-05-22] MEDS: HEPARIN SOD (PORCINE) 5000UNITS/ML 1ML VIAL/SYRINGE SQ SCH ×3 (06:44→21:11)
[2022-05-22 07:30] LABS: ALBUMIN 2.5 G/DL (3.2-5.2); ALKALINE PHOSPHATASE 74 U/L (46-116); ALT/SGPT < 9 U/L (7.0-40); AST/SGOT 12 U/L (<34); BLOOD UREA NITROGEN 15 MG/DL (9-23); CALCIUM LEVEL 8.7 MG/DL (8.5-10.1); CARBON DIOXIDE LEVEL 25 MMOL/L (20-31); CHLORIDE LEVEL 107 MMOL/L (98-107); GLOMERULAR FILTRATION RATE > 60.0 (>60); GLUCOSE, FASTING 88 MG/DL (60-100); POTASSIUM SERUM 4.4 MMOL/L (3.5-5.1); SODIUM LEVEL 139 MMOL/L (136-145); TOTAL PROTEIN 6.1 G/DL (5.7-8.2)
[2022-05-22 07:31] LABS: BILIRUBIN,TOTAL 0.3 MG/DL (0.3-1.2)
[2022-05-22] MEDS: ONDANSETRON 4MG ORAL DISINTEGRATING TAB PO PRN ×2 (08:56→21:11)
[2022-05-22] MEDS: KETOROLAC 30 MG/ML 1ML VIAL IV PRN (09:55)
[2022-05-22] MEDS ORDERED: AMOX875T2 PO (11:08)
[2022-05-22 14:00] VITALS: BP 124/71
[2022-05-22] MEDS: AUGMENTIN 875 MG TAB PO SCH ×2 (14:25→21:11)
[2022-05-22 18:37] VITALS: O2SAT 96
[2022-05-22 22:00] VITALS: BP 108/70
[2022-05-23] MEDS: ACETAMINOPHEN 500 MG TAB PO SCH ×5 (00:24→23:48)
[2022-05-23 04:05] VITALS: O2SAT 96
[2022-05-23 05:52] VITALS: BP 110/72
[2022-05-23] MEDS: HEPARIN SOD (PORCINE) 5000UNITS/ML 1ML VIAL/SYRINGE SQ SCH ×3 (05:54→22:02)
[2022-05-23 07:22] LABS: BASO # 0.1 10^3/uL (0.0-0.2); BASO % 0.8 % (0.0-1.0); EOS # 0.1 10^3/uL (0.0-0.5); EOS % 1.8 % (0.0-3.0); HEMATOCRIT 34.8 % (36.0-47.0); HEMOGLOBIN 10.9 g/dl (12.0-15.5); LYMPH # 2.6 10^3/uL (1.5-5.0); LYMPH % 34.8 % (24.0-44.0); MEAN CORPUSCULAR HEMOGLOBIN 29.1 pg (27.0-33.0); MEAN CORPUSCULAR HGB CONC 31.3 g/dl (32.0-36.5); MEAN CORPUSCULAR VOLUME 92.8 fl (80.0-96.0); MONO # 0.4 10^3/uL (0.0-0.8); MONO % 5.8 % (2.0-8.0); NEUTROPHILS # 4.1 10^3/uL (1.5-8.5); NEUTROPHILS % 56.1 % (36.0-66.0); PLATELET COUNT, AUTOMATED 280 10^3/uL (150-450); RED BLOOD COUNT 3.75 10^6/uL (4.00-5.40); WHITE BLOOD COUNT 7.4 10^3/uL (4.0-10.0)
[2022-05-23 08:06] LABS: ALBUMIN 2.9 G/DL (3.2-5.2); ALKALINE PHOSPHATASE 72 U/L (46-116); ALT/SGPT 11 U/L (7.0-40); AST/SGOT 14 U/L (<34); BILIRUBIN,TOTAL 0.3 MG/DL (0.3-1.2); BLOOD UREA NITROGEN 14 MG/DL (9-23); CARBON DIOXIDE LEVEL 32 MMOL/L (20-31); CHLORIDE LEVEL 104 MMOL/L (98-107); CREATININE FOR GFR 0.51 MG/DL (0.55-1.30); GLOMERULAR FILTRATION RATE > 60.0 (>60); GLUCOSE, FASTING 87 MG/DL (60-100); POTASSIUM SERUM 4.4 MMOL/L (3.5-5.1); SODIUM LEVEL 139 MMOL/L (136-145); TOTAL PROTEIN 6.5 G/DL (5.7-8.2)
[2022-05-23] MEDS: AUGMENTIN 875 MG TAB PO SCH ×2 (08:44→20:01)
[2022-05-23 14:00] VITALS: BP 108/65
[2022-05-23 21:37] VITALS: BP 110/67
[2022-05-24] MEDS: HEPARIN SOD (PORCINE) 5000UNITS/ML 1ML VIAL/SYRINGE SQ SCH ×3 (05:39→21:11)
[2022-05-24] MEDS: ACETAMINOPHEN 500 MG TAB PO SCH ×4 (05:39→23:20)
[2022-05-24 06:00] VITALS: BP 106/66
[2022-05-24 06:18] LABS: BASO # 0.1 10^3/uL (0.0-0.2); EOS # 0.2 10^3/uL (0.0-0.5); HEMATOCRIT 31.8 % (36.0-47.0); HEMOGLOBIN 9.9 g/dl (12.0-15.5); LYMPH # 2.9 10^3/uL (1.5-5.0); LYMPH % 42.1 % (24.0-44.0); MEAN CORPUSCULAR HEMOGLOBIN 29.2 pg (27.0-33.0); MEAN CORPUSCULAR HGB CONC 31.1 g/dl (32.0-36.5); MEAN CORPUSCULAR VOLUME 93.8 fl (80.0-96.0); MONO # 0.4 10^3/uL (0.0-0.8); MONO % 5.6 % (2.0-8.0); NEUTROPHILS # 3.3 10^3/uL (1.5-8.5); NEUTROPHILS % 47.6 % (36.0-66.0); PLATELET COUNT, AUTOMATED 298 10^3/uL (150-450); RED BLOOD COUNT 3.39 10^6/uL (4.00-5.40); WHITE BLOOD COUNT 6.9 10^3/uL (4.0-10.0)
[2022-05-24 07:28] LABS: ALBUMIN 3.1 G/DL (3.2-5.2); ALKALINE PHOSPHATASE 76 U/L (46-116); ALT/SGPT 13 U/L (7.0-40); AST/SGOT 17 U/L (<34); BILIRUBIN,TOTAL 0.3 MG/DL (0.3-1.2); BLOOD UREA NITROGEN 18 MG/DL (9-23); CALCIUM LEVEL 9.2 MG/DL (8.5-10.1); CARBON DIOXIDE LEVEL 29 MMOL/L (20-31); CHLORIDE LEVEL 104 MMOL/L (98-107); CREATININE FOR GFR 0.51 MG/DL (0.55-1.30); GLOMERULAR FILTRATION RATE > 60.0 (>60); GLUCOSE, FASTING 84 MG/DL (60-100); POTASSIUM SERUM 4.7 MMOL/L (3.5-5.1); SODIUM LEVEL 139 MMOL/L (136-145); TOTAL PROTEIN 6.9 G/DL (5.7-8.2)
[2022-05-24] MEDS: AUGMENTIN 875 MG TAB PO SCH ×2 (08:35→21:11)
[2022-05-25] MEDS: HEPARIN SOD (PORCINE) 5000UNITS/ML 1ML VIAL/SYRINGE SQ SCH ×2 (05:28→14:00)
[2022-05-25] MEDS: ACETAMINOPHEN 500 MG TAB PO SCH ×2 (05:28→11:39)
[2022-05-25 06:00] VITALS: BP 116/73
[2022-05-25] MEDS: AUGMENTIN 875 MG TAB PO SCH (08:06)
[2022-05-25] MEDS ORDERED: AMOX875T2 PO (14:27)
== END 2022-05-25 15:27 | disposition home or self-care (01) | DRG 603 ==
LOC: M ED 07:08 → M ED INP 12:10 → ENRESERV 13:23 → M MSPAV 15:28
PROVIDERS: ADMIT Student in an Organized Health Care Education/Training Program; ATTEND Internal Medicine
PROC: 0X9K0ZZ Drainage of Left Hand, Open Approach (ICD-10-PCS; principal; 2022-05-20 19:00)
DX: L02.512 Cutaneous abscess of left hand (principal); E87.20 Acidosis, unspecified; B18.1 Chronic viral hepatitis B without delta-agent; L03.114 Cellulitis of left upper limb; F14.20 Cocaine dependence, uncomplicated; F31.9 Bipolar disorder, unspecified; G40.909 Epilepsy, unspecified, not intractable, without status epilepticus; B95.5 Unspecified streptococcus as the cause of diseases classified elsewhere; F41.9 Anxiety disorder, unspecified